=== PATIENT | female | born 1935 | race Caucasian/White ===

== ENCOUNTER 2019-10-30 08:55 | Day surgery (SDC) | payer MEDICARE ==
[2019-10-29 14:44] LABS: BASOPHILS # (AUTO) 0.1 X10'3 (0-0.2); BASOPHILS % (AUTO) 1.1 % (0-1); EOSINOPHILS # (AUTO) 0.2 X10'3 (0-0.9); HEMATOCRIT 43.4 % (35.0-45.0); HEMOGLOBIN 14.3 g/dl (12.0-16.0); LYMPHOCYTES # (AUTO) 1.9 X10'3 (1.1-4.8); LYMPHOCYTES % (AUTO) 20.6 % (21-51); MEAN CORPUSCULAR HEMOGLOBIN 30.2 PG (27.0-31.0); MEAN CORPUSCULAR HGB CONC 32.9 g/dL (33.0-36.5); MEAN CORPUSCULAR VOLUME 92.1 FL (78-98); MEAN PLATELET VOLUME 8.8 FL (7.4-10.4); MONOCYTES # (AUTO) 0.8 X10'3 (0-0.9); MONOCYTES % (AUTO) 8.6 % (2-12); NEUTROPHILS # (AUTO) 6.2 X10'3 (1.8-7.7); NEUTROPHILS % (AUTO) 67.7 % (42-75); PLATELET COUNT 295 X10'3 (140-440); RED BLOOD COUNT 4.71 X10'6 (4.20-5.60); RED CELL DISTRIBUTION WIDTH 14.4 % (11.5-14.5); WHITE BLOOD COUNT 9.2 X10'3 (4.5-11.0)
[2019-10-29 14:46] LABS: ALBUMIN 3.3 G/DL (3.4-5.0); ANION GAP 7 (8-16); BLOOD UREA NITROGEN 10 MG/DL (7-18); BUN/CREATININE RATIO 8.6 (6.6-38.0); CALCIUM 9.6 MG/DL (8.5-10.1); CHLORIDE 106 MMOL/L (99-107); CREATININE 1.16 MG/DL (0.40-0.90); GLUCOSE 86 MG/DL (70-104); POTASSIUM 3.8 MMOL/L (3.5-5.1); SODIUM 142 MMOL/L (135-145); TOTAL CARBON DIOXIDE 29.3 MMOL/L (24-32); eGFR 45 ML/MIN
[2019-10-29 14:50] LABS: PARTIAL THROMBOPLASTIN TIME 27 SECONDS (22-32)
[~2019-10-30] VITALS: Ht 154.9 cm; Wt 75.8 kg
[2019-10-30] VITALS (15 sets, daily range): BP systolic 120–216; BP diastolic 54–76
[~2019-10-30 08:55] MED LIST: ASPI-1265 PO; CIPR-230 PO; CYAN100070 PO; DOCU-28 PO; FERR-119 PO; FURO-150 PO; LOSA100T57 PO; METO-411 PO; POTA10TA36 PO
[2019-10-30] MEDS ORDERED: DOCU240C26 PO (09:23)
[2019-10-30] MEDS ORDERED: FERR-119 PO (09:23)
[2019-10-30] MEDS ORDERED: MULT-190 (09:23)
[2019-10-30] MEDS ORDERED: LIDOcaine/PRILOcaine 5gm cream TP ONE (09:25)
[2019-10-30] MEDS ORDERED: normal saline 1,000 ML IV SCH (09:25)
[2019-10-30] MEDS ORDERED: LORazepam 0.5 MG tablet PO PRN (09:25)
[2019-10-30] MEDS ORDERED: diphenhydrAMINE 25mg capsule PO PRN (09:25)
[2019-10-30] MEDS ORDERED: nitroGLYCERIN-Tridil 50MG/D5W 250 ML IV ONE (11:25)
[2019-10-30] MEDS ORDERED: verapamil 2.5 mg/ml inj IV ONE (11:25)
[2019-10-30] MEDS ORDERED: LIDOcaine 1% (10mg/ml)w/preservative injection 20ml MDV ONE ×2 (11:26→12:32)
[2019-10-30] MEDS ORDERED: fentaNYL/PF 50MCG/1 ML 2ML syringe ONE (11:26)
[2019-10-30] MEDS ORDERED: iohexol 350 MG/ML 50ML vial IV ONE (11:26)
[2019-10-30] MEDS ORDERED: iohexol 350MG/ML 100ml bottle IV ONE (11:26)
[2019-10-30] MEDS ORDERED: heparin 1,000unit/ml 10ml vial 10 ML ONE (11:26)
[2019-10-30] MEDS ORDERED: midazolam 2 mg/2 ml injection ONE (11:26)
[2019-10-30] MEDS ORDERED: hydrALAZINE 20mg/ml inj. IV ONE (12:47)
[2019-10-30] MEDS ORDERED: hydrALAZINE 20mg/ml inj. IV PRN (13:55)
[2019-10-30 15:11] LABS: ISTAT HGB ART 12.2 g/dl (12.0-16.0); ISTAT Hct ART 36 %PCV (35-48); ISTAT O2 SATURATION ARTERIAL 97 % (95-98); ISTAT SOURCE ART
[2019-10-30 15:11] LABS: ISTAT Hct MIX 38 %PCV (35-48); ISTAT O2 SATURATION MIX VENOUS 75 % (60-80); ISTAT SOURCE MIX
[2019-10-30] MEDS ORDERED: HYDROcodone/acetaminophen 5mg/325mg tablet PO PRN (16:30)
[2019-10-30] MEDS ORDERED: HYDROcodone/acetaminophen 10/325mg tab PO PRN (16:30)
== END 2019-10-30 20:00 | disposition home or self-care (01) ==
LOC: U 08:55 → MED 3N 08:56 → U 20:00
PROVIDERS: ATTEND Internal Medicine Cardiovascular Disease
DX: R94.39 Abnormal result of other cardiovascular function study (principal); R06.02 Shortness of breath; I25.10 Atherosclerotic heart disease of native coronary artery without angina pectoris; E11.9 Type 2 diabetes mellitus without complications; I10 Essential (primary) hypertension; E78.5 Hyperlipidemia, unspecified; J44.9 Chronic obstructive pulmonary disease, unspecified; I35.0 Nonrheumatic aortic (valve) stenosis; I27.29 Other secondary pulmonary hypertension; M19.90 Unspecified osteoarthritis, unspecified site; Z95.5 Presence of coronary angioplasty implant and graft; Z79.899 Other long term (current) drug therapy; Z79.82 Long term (current) use of aspirin; Z98.890 Other specified postprocedural states; Z87.891 Personal history of nicotine dependence; Z88.0 Allergy status to penicillin
CPT/HCPCS: 36415; 80048; 82803; 85014; 85025; 85610; 85730; 93005; 93460; 99152; 99153; C1769; C1894; J0360; J1644; J2001; J2250; J3010; J7030; Q0163; Q9967; A4620; A5120; A6258; J3490

== ENCOUNTER 2021-01-07 05:02 | Inpatient (IN) | payer MEDICARE ==
[2021-01-07] VITALS (11 sets, daily range): BP systolic 112–155; BP diastolic 46–61
[~2021-01-07] VITALS: Ht 152.4 cm; Wt 93.8 kg
[~2021-01-07 05:02] MED LIST changes: +ATOR10TA70 PO; -CIPR-230 PO; +CYAN-51 PO; -CYAN100070 PO; -DOCU-28 PO; -FURO-150 PO; +MULT-190 PO; -POTA10TA36 PO
--- NOTE | 2021-01-07 05:08 | NUR ---
etomidate 40mg rocuronium 100mg
[2021-01-07] MEDS ORDERED: etomidate 2mg/ml inj. IV STA (05:15)
[2021-01-07] MEDS ORDERED: rocuronium 10mg/ml inj IV STA (05:15)
[2021-01-07] MEDS ORDERED: enalaprilat dihydrate 2.5mg/2ml vial IV STA (05:15)
[2021-01-07] MEDS ORDERED: furosemide 10 MG/1 ML 10ml inj IV STA (05:18)
--- NOTE | 2021-01-07 05:31 | NUR ---
LM for family member Andrew to call here.
[2021-01-07] MEDS: midazolam 100mg in NS 100ml 100 ML IV PRN (05:40)
[2021-01-07] MEDS: FENTANYL-0.9 % NACL/PF 100 ML IV PRN ×2 (05:41→22:07)
--- NOTE | 2021-01-07 06:05 | NUR ---
Received phone call back from Andrew. Informed him of condition of Celeste.
[2021-01-07 06:07] LABS: ABG BASE EXCESS -1.8 mmol/L (-2.0-2.0); ABG HCO3 24.4 mmol/L (22.0-26.0); ABG OXYGEN SATURATION 91.2 % (94-97); ABG PCO2 (T) 46.3 mmHg (32.0-45.0); ABG PO2 (T) 61.4 mmHg (75.0-100.0); FCOHb 0.5 % (0.0-3.9); FMetHb 0.4 % (0.0-1.5); FO2Hb 90.4 % (94-97); PATIENT TEMPERATURE 36.6; PEEP 5 cm H2O; RESPIRATORY RATE 18 b/min; TOTAL HEMOGLOBIN 14.2 G/dl (12.0-16.0)
[2021-01-07 06:17] LABS: BASOPHILS # (AUTO) 0.1 X10'3 (0-0.2); BASOPHILS % (AUTO) 0.4 % (0-1); EOSINOPHILS # (AUTO) 0.2 X10'3 (0-0.9); EOSINOPHILS % (AUTO) 0.7 % (0-6); HEMATOCRIT 42.5 % (35.0-45.0); LYMPHOCYTES # (AUTO) 1.7 X10'3 (1.1-4.8); LYMPHOCYTES % (AUTO) 8.1 % (21-51); MEAN CORPUSCULAR HEMOGLOBIN 29.7 PG (27.0-31.0); MEAN CORPUSCULAR VOLUME 90.2 FL (78-98); MEAN PLATELET VOLUME 9.2 FL (7.4-10.4); MONOCYTES # (AUTO) 0.8 X10'3 (0-0.9); MONOCYTES % (AUTO) 3.5 % (2-12); NEUTROPHILS # (AUTO) 18.7 X10'3 (1.8-7.7); NEUTROPHILS % (AUTO) 87.3 % (42-75); PLATELET COUNT 309 X10'3 (140-440); RED BLOOD COUNT 4.71 X10'6 (4.20-5.60); RED CELL DISTRIBUTION WIDTH 14.1 % (11.5-14.5); WHITE BLOOD COUNT 21.4 X10'3 (4.5-11.0)
[2021-01-07] MEDS ORDERED: DOPamine 400mg/D5W 250ml 250 ML IV ONE (06:20)
--- NOTE | 2021-01-07 06:20 | NUR ---
notified dr deng about pressure increase, ok to hold dopamine for now.
--- NOTE | 2021-01-07 06:21 | NUR ---
placed pt on pacer pads per dr deng
[2021-01-07 06:24] LABS: ALANINE AMINOTRANSFERASE 13 U/L (12-78); ALBUMIN 2.9 G/DL (3.4-5.0); ALBUMIN/GLOBULIN RATIO 0.7 (1.1-1.5); ALKALINE PHOSPHATASE 90 IU/L (46-116); ANION GAP 13 (8-16); ASPARTATE AMINO TRANSFERASE 16 U/L (10-37); BILIRUBIN,TOTAL 0.4 MG/DL (0.1-1.0); BLOOD UREA NITROGEN 19 MG/DL (7-18); BUN/CREATININE RATIO 13.7 (6.6-38.0); CALCIUM 8.4 MG/DL (8.5-10.1); CHLORIDE 103 MMOL/L (99-107); CREATININE 1.39 MG/DL (0.40-0.90); GLUCOSE 208 MG/DL (70-104); SODIUM 143 MMOL/L (135-145); TOTAL CARBON DIOXIDE 27.3 MMOL/L (24-32); TOTAL PROTEIN 6.9 G/DL (6.4-8.2); eGFR 36 ML/MIN
--- NOTE | 2021-01-07 06:31 | NUR ---
norepi running at 0/5 placed on hold d/t blood pressure
[2021-01-07 06:35] LABS: POTASSIUM 3.8 MMOL/L (3.5-5.1)
[2021-01-07] MEDS ORDERED: nitroPRUSSIDE 0.2mg/mL in NS 100 ML IV ONE (06:35)
--- NOTE | 2021-01-07 06:35 | NUR ---
dr deng ordered to start a nitro gtt for pt, orders placed.
[2021-01-07] MEDS ORDERED: potassium Cl 40MEQ/1/2NS 520ml 520 ML IV PRN (06:40)
[2021-01-07] MEDS ORDERED: magnesium 2GM in 50ml NS 50 ML IV PRN (06:40)
[2021-01-07] MEDS ORDERED: acetaminophen 325mg tablet PO PRN (06:40)
[2021-01-07] MEDS ORDERED: LIDOcaine 2% 10ml TOPICAL JELLY (Urojet) TP ONE (06:40)
[2021-01-07] MEDS ORDERED: nitroPRUSSIDE 0.2mg/mL in NS 100 ML IV SCH (07:00)
--- NOTE | 2021-01-07 07:00 | NUR ---
dopamine on hold, norepi on hold, awaiting nitro from pharmacy. closely monitoring pt.
[2021-01-07] MEDS ORDERED: nitroPRUSSIDE sod inj. 50 MG in dextrose 5%-water 248 ML IV SCH (07:10)
[2021-01-07] MEDS ORDERED: docusate sod 100mg capsule PO SCH (08:00)
[2021-01-07] MEDS ORDERED: rocuronium 10mg/ml inj IV ONE (08:00)
[2021-01-07] MEDS: famotidine 20mg tablet PO SCH ×2 (08:00→20:00)
[2021-01-07] MEDS ORDERED: epiNEPHrine 0.1mg/ml 10ml syringe ONE (08:00)
[2021-01-07] MEDS ORDERED: piperacillin/tazo 3.375gm/50ml 50 ML IV ONE (08:30)
[2021-01-07] MEDS ORDERED: VANCOmycin 1250MG/NS 250ml Bag 250 ML IV ONE (09:00)
[2021-01-07] MEDS ORDERED: vancomycin inj 500 MG in normal saline 100ml IV soln 100 ML IV SCH (09:00)
[2021-01-07 09:39] LABS: PARTIAL THROMBOPLASTIN TIME 24 SECONDS (22-32)
[2021-01-07] MEDS: heparin, porcine 5000 units/ml vial SQ SCH ×2 (10:04→16:56)
[2021-01-07 10:33] LABS: CLARITY,URINE CLEAR (Clear); COLOR,URINE STRAW (Yellow); GLUCOSE, URINE NEGATIVE (Neg); KETONES,URINE NEGATIVE (Neg); LEUKOCYTE ESTERASE ,URINE NEGATIVE (Neg); NITRITES, URINE NEGATIVE (Neg); OCCULT BLOOD,URINE LARGE (Neg); PROTEIN,URINE 30 mg/dl (Neg); UROBILINOGEN,URINE 0.2 E.U/dL (0.2-1.0)
[2021-01-07 10:36] LABS: UA COLLECTION TYPE STRAIGHT CATH
[2021-01-07 10:38] LABS: HYALINE CASTS 0-3 /LPF (NEGATIVE); SQUAMOUS EPITHELIAL CELL,UR FEW /LPF (FEW)
[2021-01-07 10:39] LABS: BACTERIA,URINE FEW /HPF (Neg); WBC,URINE 0-4 /HPF (0-4)
[2021-01-07] MEDS: K, MAG and/or Phos replacement - Verify level? MC SCH (13:30)
[2021-01-07] MEDS: normal saline 1000ml 1,000 ML IV SCH ×2 (14:30→23:25)
[2021-01-07 15:33] LABS: ABG HCO3 23.4 mmol/L (22.0-26.0); ABG OXYGEN SATURATION 99.3 % (94-97); ABG PCO2 (T) 31.6 mmHg (32.0-45.0); ABG PO2 (T) 251.5 mmHg (75.0-100.0); ALLEN'S TEST POSITIVE; FMetHb 0.3 % (0.0-1.5); PATIENT TEMPERATURE 37.6; PEEP 10 cm H2O; RESPIRATORY RATE 20 b/min; TOTAL HEMOGLOBIN 14.1 G/dl (12.0-16.0)
[2021-01-07] MEDS: piperacillin/tazo 3.375gm/50ml 50 ML IV SCH (17:03)
--- NOTE | 2021-01-07 18:43 | NUR ---
Problems reprioritized. Patient report given, questions answered & plan of care reviewed with Carroll HERNANDES.
[2021-01-07] MEDS ORDERED: vancomycin/NS 1 GM ADD-VANTAGE 250 ML IV SCH (20:00)
[2021-01-07] MEDS ORDERED: lactobacillus rhamnosus 10,000 MMU CELLS/CAPSULE PO SCH (20:00)
[2021-01-07] MEDS: docusate sodium 100mg/10ml UD cup PO SCH (21:30)
[2021-01-08] VITALS (24 sets, daily range): BP systolic 99–153; BP diastolic 41–84
[2021-01-08] MEDS: heparin, porcine 5000 units/ml vial SQ SCH ×3 (01:06→16:31)
[2021-01-08] MEDS: piperacillin/tazo 3.375gm/50ml 50 ML IV SCH ×3 (01:33→21:09)
[2021-01-08] MEDS ORDERED: ringers solution, lacted 1,000 ML IV ONE (02:25)
[2021-01-08 04:00] LABS: BASOPHILS # (AUTO) 0.1 X10'3 (0-0.2); BASOPHILS % (AUTO) 0.6 % (0-1); EOSINOPHILS # (AUTO) 0.1 X10'3 (0-0.9); HEMATOCRIT 35.1 % (35.0-45.0); HEMOGLOBIN 11.9 g/dl (12.0-16.0); LYMPHOCYTES # (AUTO) 1.4 X10'3 (1.1-4.8); LYMPHOCYTES % (AUTO) 12.6 % (21-51); MEAN CORPUSCULAR HEMOGLOBIN 29.5 PG (27.0-31.0); MEAN CORPUSCULAR VOLUME 86.7 FL (78-98); MEAN PLATELET VOLUME 9.2 FL (7.4-10.4); MONOCYTES % (AUTO) 9.3 % (2-12); NEUTROPHILS # (AUTO) 8.5 X10'3 (1.8-7.7); NEUTROPHILS % (AUTO) 76.5 % (42-75); PLATELET COUNT 247 X10'3 (140-440); RED BLOOD COUNT 4.05 X10'6 (4.20-5.60); RED CELL DISTRIBUTION WIDTH 13.5 % (11.5-14.5); WHITE BLOOD COUNT 11.1 X10'3 (4.5-11.0)
[2021-01-08 04:13] LABS: ABG HCO3 22.7 mmol/L (22.0-26.0); ABG OXYGEN SATURATION 94.8 % (94-97); ABG PCO2 (T) 35.8 mmHg (32.0-45.0); ABG PO2 (T) 78.5 mmHg (75.0-100.0); ALLEN'S TEST Yes; FCOHb 0.2 % (0.0-3.9); FMetHb 0.3 % (0.0-1.5); FO2Hb 94.3 % (94-97); PATIENT TEMPERATURE 37.6; PEEP 8 cm H2O; RESPIRATORY RATE 18 b/min; TOTAL HEMOGLOBIN 12.4 G/dl (12.0-16.0)
[2021-01-08 04:19] LABS: ALBUMIN 2.4 G/DL (3.4-5.0); ANION GAP 13 (8-16); BLOOD UREA NITROGEN 29 MG/DL (7-18); BUN/CREATININE RATIO 15.2 (6.6-38.0); CALCIUM 7.8 MG/DL (8.5-10.1); CHLORIDE 107 MMOL/L (99-107); CREATININE 1.91 MG/DL (0.40-0.90); GLUCOSE 88 MG/DL (70-104); MAGNESIUM 1.8 MG/DL (1.5-2.4); PHOSPHORUS 3.1 MG/DL (2.3-4.5); POTASSIUM 3.7 MMOL/L (3.5-5.1); SODIUM 145 MMOL/L (135-145); TOTAL CARBON DIOXIDE 25.3 MMOL/L (24-32); eGFR 25 ML/MIN
[2021-01-08] MEDS: midazolam 100mg in NS 100ml 100 ML IV PRN ×2 (04:43→22:43)
[2021-01-08] MEDS ORDERED: dextrose 50%-water 50ml dispensing syringe IV ONE (07:19)
[2021-01-08] MEDS ORDERED: dextrose 50%-water 50ml dispensing syringe IV PRN (07:20)
[2021-01-08] MEDS: dextrose 50%-water 50ml dispensing syringe IV PRN ×2 (07:22→12:25)
[2021-01-08] MEDS: K, MAG and/or Phos replacement - Verify level? MC SCH (07:38)
[2021-01-08] MEDS ORDERED: ferrous sulfate 325mg tablet PO SCH (08:00)
[2021-01-08] MEDS ORDERED: losartan 50mg tablet PO SCH (08:00)
[2021-01-08] MEDS ORDERED: cyanocobalamin 500mcg tablet PO SCH (08:00)
[2021-01-08] MEDS ORDERED: metoprolol succinate 25mg (24-HOUR) SR. Tablet PO SCH (08:00)
[2021-01-08] MEDS ORDERED: azithromycin 250mg tablet PO SCH (08:00)
[2021-01-08] MEDS ORDERED: multivitamins, therapeutics tablet PO SCH (08:00)
[2021-01-08] MEDS ORDERED: aspirin 81mg tab.chew PO SCH (08:00)
[2021-01-08] MEDS ORDERED: atorvastatin 10mg tablet PO SCH (08:00)
[2021-01-08] MEDS: vancomycin inj 500 MG in normal saline 100ml IV soln 100 ML IV SCH (08:23)
[2021-01-08] MEDS ORDERED: PERFLUTREN PROTEIN-A MICROSPHR (Optison) 0.22 MG/ML 3ML VIAL IV ONE (08:25)
[2021-01-08] MEDS: docusate sodium 100mg/10ml UD cup PO SCH (08:26)
[2021-01-08] MEDS: famotidine 20mg tablet PO SCH (08:29)
[2021-01-08 09:07] LABS: OXYGEN SATURATION (MIXED VEN) 71.5 % (60-80); PO2 MIXED VENOUS (TEMP COR) 41.2 mmHg (35-46)
[2021-01-08] MEDS: normal saline 1000ml 1,000 ML IV SCH ×2 (09:25→17:59)
--- NOTE | 2021-01-08 11:08 | NUR ---
TF consult: Pt admit for TONY, PNA, and acute respiratory failure requiring intubation. Pt with an OG tube in place, TF recommendations below. Will hold off on water flushes at this time in view of renal status. No documented LBM, pt receiving routine bowel care. Will continue to follow closely. Recommendations: 1) Continuous Vital High Protein with 50 mL/hr goal rate to provide: 1200 mL total volume/day, 1200 kcal, 105 g protein, and 1003 mL water 2) Monitor renal status and implement water flushes as appropriate 3) Prealbumin q Monday/ 4) Daily weights 5) Routine bowel care 6) Advance to regular diet as medically indicated following extubation Addendum: 01/08/21 at [address] Amended: Links added.
[2021-01-08] MEDS ORDERED: acetaminophen 325mg tablet OGT PRN (12:18)
[2021-01-08] MEDS ORDERED: acetaminophen 325mg/10.15ml oral unit dose solution OGT PRN (12:20)
[2021-01-08] MEDS: nystatin 15 GM powder TP SCH ×2 (13:53→21:01)
[2021-01-08 17:45] LABS: ALBUMIN 2.1 G/DL (3.4-5.0); ANION GAP 10 (8-16); BLOOD UREA NITROGEN 29 MG/DL (7-18); BUN/CREATININE RATIO 13.6 (6.6-38.0); CALCIUM 7.3 MG/DL (8.5-10.1); CHLORIDE 108 MMOL/L (99-107); CREATININE 2.14 MG/DL (0.40-0.90); GLUCOSE 111 MG/DL (70-104); POTASSIUM 3.4 MMOL/L (3.5-5.1); SODIUM 141 MMOL/L (135-145); TOTAL CARBON DIOXIDE 23.5 MMOL/L (24-32); eGFR 22 ML/MIN
[2021-01-08] MEDS ORDERED: normal saline 1000ml 1,000 ML IV ONE (17:55)
--- NOTE | 2021-01-08 18:31 | NUR ---
Problems reprioritized. Patient report given, questions answered & plan of care reviewed with Aislinn HERNANDES.
[2021-01-08] MEDS: FENTANYL-0.9 % NACL/PF 100 ML IV PRN (18:54)
[2021-01-08] MEDS: metoprolol tartrate 50mg tablet OGT SCH (20:00)
[2021-01-08] MEDS ORDERED: potassium Cl 40MEQ/250ML bag 270 ML IV PRN (20:10)
[2021-01-08] MEDS: lactobacillus rhamnosus 10,000 MMU CELLS/CAPSULE OGT SCH (20:59)
[2021-01-08] MEDS: docusate sodium 100mg/10ml UD cup OGT SCH (21:01)
[2021-01-08] MEDS: famotidine 20mg tablet OGT SCH (21:07)
[2021-01-09] VITALS (24 sets, daily range): BP systolic 104–172; BP diastolic 41–64
[2021-01-09] MEDS: heparin, porcine 5000 units/ml vial SQ SCH ×4 (02:58→19:02)
[2021-01-09 03:10] LABS: BASOPHILS # (AUTO) 0.1 X10'3 (0-0.2); BASOPHILS % (AUTO) 0.9 % (0-1); EOSINOPHILS # (AUTO) 0.2 X10'3 (0-0.9); EOSINOPHILS % (AUTO) 2.9 % (0-6); HEMOGLOBIN 10.3 g/dl (12.0-16.0); LYMPHOCYTES # (AUTO) 1.3 X10'3 (1.1-4.8); MEAN CORPUSCULAR HEMOGLOBIN 29.8 PG (27.0-31.0); MEAN CORPUSCULAR HGB CONC 33.2 g/dL (33.0-36.5); MEAN CORPUSCULAR VOLUME 89.9 FL (78-98); MEAN PLATELET VOLUME 9.2 FL (7.4-10.4); MONOCYTES # (AUTO) 0.8 X10'3 (0-0.9); MONOCYTES % (AUTO) 10.2 % (2-12); NEUTROPHILS # (AUTO) 5.8 X10'3 (1.8-7.7); PLATELET COUNT 201 X10'3 (140-440); RED BLOOD COUNT 3.45 X10'6 (4.20-5.60); RED CELL DISTRIBUTION WIDTH 13.9 % (11.5-14.5); WHITE BLOOD COUNT 8.2 X10'3 (4.5-11.0)
[2021-01-09 03:24] LABS: ABG BASE EXCESS -3.3 mmol/L (-2.0-2.0); ABG HCO3 20.2 mmol/L (22.0-26.0); ABG OXYGEN SATURATION 95.4 % (94-97); ABG PCO2 (T) 30.7 mmHg (32.0-45.0); ABG PO2 (T) 77.4 mmHg (75.0-100.0); ALLEN'S TEST POSITIVE; FCOHb 0.2 % (0.0-3.9); FMetHb 0.3 % (0.0-1.5); FO2Hb 94.9 % (94-97); PATIENT TEMPERATURE 36.8; PEEP 8 cm H2O; RESPIRATORY RATE 18 b/min; TOTAL HEMOGLOBIN 11.4 G/dl (12.0-16.0)
[2021-01-09 03:41] LABS: ALBUMIN 1.9 G/DL (3.4-5.0); ANION GAP 11 (8-16); BLOOD UREA NITROGEN 27 MG/DL (7-18); BUN/CREATININE RATIO 14.8 (6.6-38.0); CALCIUM 7.2 MG/DL (8.5-10.1); CHLORIDE 111 MMOL/L (99-107); CREATININE 1.83 MG/DL (0.40-0.90); GLUCOSE 103 MG/DL (70-104); MAGNESIUM 1.5 MG/DL (1.5-2.4); PHOSPHORUS 2.6 MG/DL (2.3-4.5); POTASSIUM 3.6 MMOL/L (3.5-5.1); SODIUM 143 MMOL/L (135-145); TOTAL CARBON DIOXIDE 21.5 MMOL/L (24-32); eGFR 26 ML/MIN
[2021-01-09] MEDS: normal saline 1000ml 1,000 ML IV SCH ×2 (06:24→15:25)
[2021-01-09] MEDS: metoprolol tartrate 50mg tablet OGT SCH ×2 (08:00→19:58)
[2021-01-09] MEDS: losartan 50mg tablet OGT SCH (08:00)
[2021-01-09] MEDS: K, MAG and/or Phos replacement - Verify level? MC SCH (08:00)
[2021-01-09] MEDS: vancomycin inj 500 MG in normal saline 100ml IV soln 100 ML IV SCH (09:22)
[2021-01-09] MEDS: piperacillin/tazo 3.375gm/50ml 50 ML IV SCH ×2 (09:22→19:58)
[2021-01-09] MEDS: ferrous sulfate 300mg/5ml UD oral liquid OGT SCH (09:24)
[2021-01-09] MEDS: docusate sodium 100mg/10ml UD cup OGT SCH ×2 (09:24→19:58)
[2021-01-09] MEDS: aspirin 81mg tab.chew OGT SCH (09:25)
[2021-01-09] MEDS: atorvastatin 10mg tablet OGT SCH (09:25)
[2021-01-09] MEDS: lactobacillus rhamnosus 10,000 MMU CELLS/CAPSULE OGT SCH ×2 (09:25→19:58)
[2021-01-09] MEDS: famotidine 20mg tablet OGT SCH ×2 (09:25→19:58)
[2021-01-09] MEDS: cyanocobalamin 500mcg tablet OGT SCH (09:25)
[2021-01-09] MEDS: nystatin 15 GM powder TP SCH ×3 (09:26→19:59)
[2021-01-09] MEDS: azithromycin 200mg/5ml oral suspension 15ml bottle OGT SCH (11:33)
[2021-01-09] MEDS: MULTIVIT-MIN/FERROUS GLUCONATE 9 MG/15 ML LIQUID OGT SCH (11:33)
--- NOTE | 2021-01-09 17:30 | NUR ---
Patient on sedation vacation since 629. Grimaces and fights against oral care. Moving all extremities. Does not follow commands. HR has increased into 70's-90's. In sinus rhythm with occ. PAC's. Spontaneous breathing trial done on Pressure support 12 & PEEP 5. Tolerated for about 2 hours before respiratory rate increased into 30's and RSBI 144. Placed back on A/C. Tolerating tube feeding well. UO 30-40 ml/hr. ETT had been suctioned for small amounts of bloody secretions. @1730, patient had a large amount of bloody secretions from ETT. Dr. Patiño notified. CXR done with no s/s hemorrhage. Orders to hold pm dose of Heparin SQ.
--- NOTE | 2021-01-09 18:29 | NUR ---
Problems reprioritized. Patient report given, questions answered & plan of care reviewed with Carroll HERNANDES.
--- NOTE | 2021-01-09 19:04 | NUR ---
Dr Patiño told [facility] nurse Roberto Carlos to hold heparin sq tonight dt/ increased blood in ETT post suctioning.
[2021-01-10] VITALS (21 sets, daily range): BP systolic 122–197; BP diastolic 38–84
[2021-01-10] MEDS: FENTANYL-0.9 % NACL/PF 100 ML IV PRN (02:37)
[2021-01-10 03:25] LABS: ABG BASE EXCESS -5.3 mmol/L (-2.0-2.0); ABG HCO3 20.9 mmol/L (22.0-26.0); ABG OXYGEN SATURATION 94.7 % (94-97); ABG PCO2 (T) 43.1 mmHg (32.0-45.0); ABG PO2 (T) 79.9 mmHg (75.0-100.0); ALLEN'S TEST POSITIVE; FCOHb 0.3 % (0.0-3.9); FMetHb 0.4 % (0.0-1.5); PATIENT TEMPERATURE 36.8; PEEP 5 cm H2O; RESPIRATORY RATE 16 b/min; TOTAL HEMOGLOBIN 11.2 G/dl (12.0-16.0)
[2021-01-10 03:48] LABS: BASOPHILS # (AUTO) 0.1 X10'3 (0-0.2); BASOPHILS % (AUTO) 0.6 % (0-1); EOSINOPHILS # (AUTO) 0.3 X10'3 (0-0.9); EOSINOPHILS % (AUTO) 3.2 % (0-6); HEMATOCRIT 30.7 % (35.0-45.0); HEMOGLOBIN 10.2 g/dl (12.0-16.0); LYMPHOCYTES # (AUTO) 1.5 X10'3 (1.1-4.8); LYMPHOCYTES % (AUTO) 17.7 % (21-51); MEAN CORPUSCULAR HEMOGLOBIN 30.1 PG (27.0-31.0); MEAN PLATELET VOLUME 9.5 FL (7.4-10.4); MONOCYTES % (AUTO) 11.4 % (2-12); NEUTROPHILS # (AUTO) 5.6 X10'3 (1.8-7.7); NEUTROPHILS % (AUTO) 67.1 % (42-75); PLATELET COUNT 218 X10'3 (140-440); RED BLOOD COUNT 3.38 X10'6 (4.20-5.60); RED CELL DISTRIBUTION WIDTH 14.1 % (11.5-14.5); WHITE BLOOD COUNT 8.4 X10'3 (4.5-11.0)
[2021-01-10 03:57] LABS: ALBUMIN 1.9 G/DL (3.4-5.0); ANION GAP 7 (8-16); BLOOD UREA NITROGEN 30 MG/DL (7-18); BUN/CREATININE RATIO 17.5 (6.6-38.0); CALCIUM 7.6 MG/DL (8.5-10.1); CHLORIDE 112 MMOL/L (99-107); CREATININE 1.71 MG/DL (0.40-0.90); GLUCOSE 86 MG/DL (70-104); MAGNESIUM 1.6 MG/DL (1.5-2.4); PHOSPHORUS 3.8 MG/DL (2.3-4.5); POTASSIUM 4.1 MMOL/L (3.5-5.1); SODIUM 143 MMOL/L (135-145); TOTAL CARBON DIOXIDE 23.8 MMOL/L (24-32); eGFR 28 ML/MIN
[2021-01-10] MEDS: heparin, porcine 5000 units/ml vial SQ SCH ×2 (08:00→16:00)
[2021-01-10] MEDS ORDERED: VANCOMYCIN LEVEL IV ONE (08:30)
[2021-01-10] MEDS: piperacillin/tazo 3.375gm/50ml 50 ML IV SCH ×2 (08:30→20:19)
[2021-01-10] MEDS: docusate sodium 100mg/10ml UD cup OGT SCH ×2 (08:37→20:20)
[2021-01-10] MEDS: vancomycin inj 500 MG in normal saline 100ml IV soln 100 ML IV SCH (08:37)
[2021-01-10] MEDS: atorvastatin 10mg tablet OGT SCH (08:38)
[2021-01-10] MEDS: famotidine 20mg tablet OGT SCH ×2 (08:38→20:20)
[2021-01-10] MEDS: MULTIVIT-MIN/FERROUS GLUCONATE 9 MG/15 ML LIQUID OGT SCH (08:38)
[2021-01-10] MEDS: metoprolol tartrate 50mg tablet OGT SCH ×2 (08:38→20:00)
[2021-01-10] MEDS: cyanocobalamin 500mcg tablet OGT SCH (08:38)
[2021-01-10] MEDS: lactobacillus rhamnosus 10,000 MMU CELLS/CAPSULE OGT SCH ×2 (08:39→20:20)
[2021-01-10] MEDS: losartan 50mg tablet OGT SCH (08:39)
[2021-01-10] MEDS: aspirin 81mg tab.chew OGT SCH (08:39)
[2021-01-10] MEDS: nystatin 15 GM powder TP SCH ×3 (08:40→20:21)
[2021-01-10] MEDS: ferrous sulfate 300mg/5ml UD oral liquid OGT SCH (08:59)
[2021-01-10] MEDS: azithromycin 200mg/5ml oral suspension 15ml bottle OGT SCH (08:59)
[2021-01-10] MEDS: K, MAG and/or Phos replacement - Verify level? MC SCH (09:00)
[2021-01-10] MEDS: normal saline 1000ml 1,000 ML IV SCH ×3 (09:32→21:25)
[2021-01-10] MEDS ORDERED: vancomycin inj 500 MG in normal saline 100ml IV soln 100 ML IV ONE (10:30)
[2021-01-10] MEDS: dexmedetomidin/NS 400mcg/100ml 100 ML IV SCH ×2 (16:48→20:40)
[2021-01-10] MEDS ORDERED: hydrALAZINE 20mg/ml inj. IV PRN (19:35)
[2021-01-10] MEDS: hydrALAZINE 20mg/ml inj. IV PRN (19:43)
[2021-01-11] VITALS (24 sets, daily range): BP systolic 118–197; BP diastolic 38–83
[2021-01-11] MEDS: heparin, porcine 5000 units/ml vial SQ SCH ×3 (00:31→16:07)
[2021-01-11] MEDS ORDERED: fentaNYL/PF 50MCG/1 ML 2ML syringe IV PRN (02:30)
[2021-01-11 03:00] LABS: ABG HCO3 20.6 mmol/L (22.0-26.0); ABG OXYGEN SATURATION 94.2 % (94-97); ABG PCO2 (T) 38.2 mmHg (32.0-45.0); ABG PO2 (T) 68.7 mmHg (75.0-100.0); ALLEN'S TEST POSITIVE; FCOHb 0.2 % (0.0-3.9); FMetHb 0.3 % (0.0-1.5); FO2Hb 93.7 % (94-97); PATIENT TEMPERATURE 35.8; PEEP 5 cm H2O; RESPIRATORY RATE 16 b/min; TOTAL HEMOGLOBIN 12.3 G/dl (12.0-16.0)
[2021-01-11 03:29] LABS: BASOPHILS % (AUTO) 0.3 % (0-1); EOSINOPHILS # (AUTO) 0.1 X10'3 (0-0.9); EOSINOPHILS % (AUTO) 1.5 % (0-6); HEMATOCRIT 34.8 % (35.0-45.0); HEMOGLOBIN 11.2 g/dl (12.0-16.0); LYMPHOCYTES # (AUTO) 0.6 X10'3 (1.1-4.8); LYMPHOCYTES % (AUTO) 6.2 % (21-51); MEAN CORPUSCULAR HEMOGLOBIN 29.3 PG (27.0-31.0); MEAN CORPUSCULAR HGB CONC 32.3 g/dL (33.0-36.5); MEAN CORPUSCULAR VOLUME 90.7 FL (78-98); MEAN PLATELET VOLUME 9.8 FL (7.4-10.4); MONOCYTES # (AUTO) 0.6 X10'3 (0-0.9); MONOCYTES % (AUTO) 6.3 % (2-12); NEUTROPHILS # (AUTO) 8.4 X10'3 (1.8-7.7); NEUTROPHILS % (AUTO) 85.7 % (42-75); PLATELET COUNT 239 X10'3 (140-440); RED BLOOD COUNT 3.84 X10'6 (4.20-5.60); RED CELL DISTRIBUTION WIDTH 14.4 % (11.5-14.5); WHITE BLOOD COUNT 9.7 X10'3 (4.5-11.0)
[2021-01-11 04:37] LABS: ANION GAP 12 (8-16); BLOOD UREA NITROGEN 30 MG/DL (7-18); BUN/CREATININE RATIO 21.9 (6.6-38.0); CALCIUM 8.2 MG/DL (8.5-10.1); CHLORIDE 111 MMOL/L (99-107); CREATININE 1.37 MG/DL (0.40-0.90); GLUCOSE 133 MG/DL (70-104); MAGNESIUM 1.8 MG/DL (1.5-2.4); PHOSPHORUS 3.9 MG/DL (2.3-4.5); POTASSIUM 4.1 MMOL/L (3.5-5.1); PREALBUMIN 13.4 MG/DL (19-36); SODIUM 144 MMOL/L (135-145); TOTAL CARBON DIOXIDE 20.7 MMOL/L (24-32); eGFR 37 ML/MIN
[2021-01-11] MEDS: hydrALAZINE 20mg/ml inj. IV PRN (06:04)
[2021-01-11] MEDS: K, MAG and/or Phos replacement - Verify level? MC SCH (08:00)
[2021-01-11] MEDS: cyanocobalamin 500mcg tablet OGT SCH (08:20)
[2021-01-11] MEDS: losartan 50mg tablet OGT SCH (08:20)
[2021-01-11] MEDS: aspirin 81mg tab.chew OGT SCH (08:20)
[2021-01-11] MEDS: atorvastatin 10mg tablet OGT SCH (08:20)
[2021-01-11] MEDS: QUEtiapine 25mg tablet PO SCH ×2 (08:20→20:02)
[2021-01-11] MEDS: lactobacillus rhamnosus 10,000 MMU CELLS/CAPSULE OGT SCH ×2 (08:21→20:02)
[2021-01-11] MEDS: metoprolol tartrate 50mg tablet OGT SCH ×2 (08:21→20:00)
[2021-01-11] MEDS: famotidine 20mg tablet OGT SCH ×2 (08:21→20:02)
[2021-01-11] MEDS: docusate sodium 100mg/10ml UD cup OGT SCH ×2 (08:21→20:03)
[2021-01-11] MEDS: ferrous sulfate 300mg/5ml UD oral liquid OGT SCH (08:21)
[2021-01-11] MEDS: MULTIVIT-MIN/FERROUS GLUCONATE 9 MG/15 ML LIQUID OGT SCH (08:21)
[2021-01-11] MEDS: azithromycin 200mg/5ml oral suspension 15ml bottle OGT SCH (08:22)
[2021-01-11] MEDS: piperacillin/tazo 3.375gm/50ml 50 ML IV SCH ×2 (08:22→16:08)
[2021-01-11] MEDS: nystatin 15 GM powder TP SCH ×3 (08:23→20:05)
[2021-01-11] MEDS ORDERED: vancomycin inj 750 MG in normal saline 250ml IV soln 250 ML IV SCH (09:00)
--- NOTE | 2021-01-11 12:25 | NUR ---
Reassessment: Pt tolerating TF at goal GRV WNL. LBM 01/09 receiving routine colace. Noted serum Na 144 w/ no free water however previously receiving NS until today; free water recs below if to start. Noted new wt 85.8kg +11.8kg wt gain one day likely error; most accurate wt 74kg making true BMI 32. Will continue to monitor for TF tolerance and adjustment needs on vent. Recommendations: 1) Continuous Vital High Protein with 50 mL/hr goal rate to provide: 1200 mL total volume/day, 1200 kcal, 105 g protein, and 1003 mL water 2) IF water flush 200ml Q4H; monitor for need given TONY per MD w/ +3 edema 3) Prealbumin q Monday/; Daily weights 4) Routine bowel care 5) Advance to regular diet as medically indicated following extubation following INDUSTRIAL THERAPIST BSS Addendum: 01/11/21 at [address] Amended: Links added.
--- NOTE | 2021-01-11 16:00 | NUR ---
PATIENT IS AWAKE AND FOLLOWING COMMANDS BUT VERY SENSITIVE TO ANY STIMULUS, WILL GET RESTLESS AND BLOOD PRESSURE GOES UP. PATIENT WAS NOT ON ANY SEDATION THE WHOLE DAY SINCE 0200 AND WAS ON CPAP. GRANDSON AT BEDSIDE AND TALKING TO PATIENT, PATIENT BECOMING INCREASINGLY AGITATED AND RESTLESS, DR DAMON NOTIFIED. PRECEDEX REORDERED AND RESTARTED AND PATIENT PUT BACK ON AC MODE.
[2021-01-11] MEDS: dexmedetomidin/NS 400mcg/100ml 100 ML IV SCH ×2 (16:05→23:37)
--- NOTE | 2021-01-11 18:30 | NUR ---
Patient in room CICU 2014. I have received report from GRETA Mckeon and had the opportunity to ask questions and assume patient care.
[2021-01-12] VITALS (24 sets, daily range): BP systolic 134–180; BP diastolic 44–61
[2021-01-12] MEDS: piperacillin/tazo 3.375gm/50ml 50 ML IV SCH ×4 (00:40→23:34)
[2021-01-12] MEDS: heparin, porcine 5000 units/ml vial SQ SCH ×4 (00:41→23:34)
[2021-01-12 02:39] LABS: BASOPHILS % (AUTO) 0.2 % (0-1); EOSINOPHILS # (AUTO) 0.1 X10'3 (0-0.9); EOSINOPHILS % (AUTO) 1.4 % (0-6); HEMOGLOBIN 10.5 g/dl (12.0-16.0); LYMPHOCYTES # (AUTO) 0.8 X10'3 (1.1-4.8); MEAN CORPUSCULAR HEMOGLOBIN 29.4 PG (27.0-31.0); MEAN CORPUSCULAR HGB CONC 32.9 g/dL (33.0-36.5); MEAN CORPUSCULAR VOLUME 89.3 FL (78-98); MEAN PLATELET VOLUME 9.5 FL (7.4-10.4); MONOCYTES # (AUTO) 0.7 X10'3 (0-0.9); MONOCYTES % (AUTO) 7.5 % (2-12); NEUTROPHILS # (AUTO) 8.3 X10'3 (1.8-7.7); NEUTROPHILS % (AUTO) 82.9 % (42-75); PLATELET COUNT 240 X10'3 (140-440); RED BLOOD COUNT 3.58 X10'6 (4.20-5.60); RED CELL DISTRIBUTION WIDTH 14.2 % (11.5-14.5)
[2021-01-12 03:02] LABS: ALBUMIN 1.9 G/DL (3.4-5.0); BLOOD UREA NITROGEN 38 MG/DL (7-18); BUN/CREATININE RATIO 28.6 (6.6-38.0); CALCIUM 8.1 MG/DL (8.5-10.1); CREATININE 1.33 MG/DL (0.40-0.90); GLUCOSE 163 MG/DL (70-104); MAGNESIUM 1.8 MG/DL (1.5-2.4); PHOSPHORUS 3.8 MG/DL (2.3-4.5); TOTAL CARBON DIOXIDE 23.4 MMOL/L (24-32); eGFR 38 ML/MIN
[2021-01-12 03:13] LABS: ANION GAP 10 (8-16); CHLORIDE 112 MMOL/L (99-107); POTASSIUM 3.9 MMOL/L (3.5-5.1); SODIUM 145 MMOL/L (135-145)
[2021-01-12 03:14] LABS: ABG BASE EXCESS -3.9 mmol/L (-2.0-2.0); ABG HCO3 20.4 mmol/L (22.0-26.0); ABG OXYGEN SATURATION 96.3 % (94-97); ALLEN'S TEST POSITIVE; FCOHb 0.3 % (0.0-3.9); FMetHb 0.2 % (0.0-1.5); FO2Hb 95.8 % (94-97); PATIENT TEMPERATURE 36.6; PEEP 5 cm H2O; RESPIRATORY RATE 16 b/min; TOTAL HEMOGLOBIN 11.4 G/dl (12.0-16.0)
[2021-01-12] MEDS: dexmedetomidin/NS 400mcg/100ml 100 ML IV SCH (05:32)
--- NOTE | 2021-01-12 06:21 | NUR ---
Problems reprioritized. Patient report given, questions answered & plan of care reviewed with GRETA Mckeon.
[2021-01-12] MEDS: K, MAG and/or Phos replacement - Verify level? MC SCH (08:00)
[2021-01-12] MEDS: famotidine 20mg tablet OGT SCH ×2 (08:27→19:53)
[2021-01-12] MEDS: lactobacillus rhamnosus 10,000 MMU CELLS/CAPSULE OGT SCH ×2 (08:28→19:53)
[2021-01-12] MEDS: docusate sodium 100mg/10ml UD cup OGT SCH ×2 (08:28→19:37)
[2021-01-12] MEDS: QUEtiapine 25mg tablet PO SCH ×2 (08:28→19:53)
[2021-01-12] MEDS: atorvastatin 10mg tablet OGT SCH (08:28)
[2021-01-12] MEDS: aspirin 81mg tab.chew OGT SCH (08:28)
[2021-01-12] MEDS: MULTIVIT-MIN/FERROUS GLUCONATE 9 MG/15 ML LIQUID OGT SCH (08:28)
[2021-01-12] MEDS: cyanocobalamin 500mcg tablet OGT SCH (08:28)
[2021-01-12] MEDS: ferrous sulfate 300mg/5ml UD oral liquid OGT SCH (08:28)
[2021-01-12] MEDS: azithromycin 200mg/5ml oral suspension 15ml bottle OGT SCH (08:29)
[2021-01-12] MEDS: nystatin 15 GM powder TP SCH ×3 (08:30→19:54)
[2021-01-12] MEDS: metoprolol tartrate 50mg tablet OGT SCH ×2 (09:17→19:37)
[2021-01-12] MEDS: losartan 50mg tablet OGT SCH (09:18)
--- NOTE | 2021-01-12 10:00 | NUR ---
INCONTINENT OF LARGE AMOUNT OF LOOSE STOOLS AND STILL PASSING STOOLS WHILE BEING CLEANED, RECTAL TUBE INSERTED PER ORDER OF DR DAMON. PATIENT TOLERATED INSERTION WELL.
--- NOTE | 2021-01-12 18:30 | NUR ---
Patient in room CICU 2014. I have received report from GRETA Mckeon and had the opportunity to ask questions and assume patient care.
[2021-01-13] VITALS (24 sets, daily range): BP systolic 93–213; BP diastolic 34–73
[2021-01-13] MEDS: dexmedetomidin/NS 400mcg/100ml 100 ML IV SCH (02:36)
[2021-01-13 02:56] LABS: BASOPHILS % (AUTO) 0.4 % (0-1); EOSINOPHILS # (AUTO) 0.3 X10'3 (0-0.9); EOSINOPHILS % (AUTO) 3.4 % (0-6); HEMATOCRIT 29.1 % (35.0-45.0); HEMOGLOBIN 9.6 g/dl (12.0-16.0); LYMPHOCYTES % (AUTO) 12.2 % (21-51); MEAN CORPUSCULAR HEMOGLOBIN 29.5 PG (27.0-31.0); MEAN CORPUSCULAR VOLUME 89.3 FL (78-98); MEAN PLATELET VOLUME 9.6 FL (7.4-10.4); MONOCYTES # (AUTO) 0.9 X10'3 (0-0.9); MONOCYTES % (AUTO) 10.7 % (2-12); NEUTROPHILS # (AUTO) 5.9 X10'3 (1.8-7.7); NEUTROPHILS % (AUTO) 73.3 % (42-75); PLATELET COUNT 233 X10'3 (140-440); RED BLOOD COUNT 3.26 X10'6 (4.20-5.60); RED CELL DISTRIBUTION WIDTH 14.3 % (11.5-14.5); WHITE BLOOD COUNT 8.1 X10'3 (4.5-11.0)
[2021-01-13 03:11] LABS: ABG BASE EXCESS -2.8 mmol/L (-2.0-2.0); ABG HCO3 21.5 mmol/L (22.0-26.0); ABG PCO2 (T) 35.4 mmHg (32.0-45.0); ALLEN'S TEST POSITIVE; FCOHb 0.3 % (0.0-3.9); FMetHb 0.3 % (0.0-1.5); FO2Hb 95.4 % (94-97); PEEP 5 cm H2O; RESPIRATORY RATE 16 b/min; TOTAL HEMOGLOBIN 10.2 G/dl (12.0-16.0)
[2021-01-13 03:17] LABS: ALBUMIN 1.8 G/DL (3.4-5.0); BLOOD UREA NITROGEN 40 MG/DL (7-18); BUN/CREATININE RATIO 29.9 (6.6-38.0); CALCIUM 8.2 MG/DL (8.5-10.1); CREATININE 1.34 MG/DL (0.40-0.90); GLUCOSE 133 MG/DL (70-104); MAGNESIUM 1.8 MG/DL (1.5-2.4); PHOSPHORUS 4.2 MG/DL (2.3-4.5); TOTAL CARBON DIOXIDE 23.6 MMOL/L (24-32); eGFR 38 ML/MIN
[2021-01-13 03:41] LABS: ANION GAP 10 (8-16); CHLORIDE 113 MMOL/L (99-107); POTASSIUM 3.8 MMOL/L (3.5-5.1); SODIUM 147 MMOL/L (135-145)
--- NOTE | 2021-01-13 06:06 | NUR ---
Problems reprioritized. Patient report given, questions answered & plan of care reviewed with GRETA Mckeon.
[2021-01-13] MEDS: K, MAG and/or Phos replacement - Verify level? MC SCH (08:00)
[2021-01-13] MEDS: MULTIVIT-MIN/FERROUS GLUCONATE 9 MG/15 ML LIQUID OGT SCH (08:12)
[2021-01-13] MEDS: azithromycin 200mg/5ml oral suspension 15ml bottle OGT SCH (08:12)
[2021-01-13] MEDS: ferrous sulfate 300mg/5ml UD oral liquid OGT SCH (08:12)
[2021-01-13] MEDS: piperacillin/tazo 3.375gm/50ml 50 ML IV SCH ×2 (08:12→15:33)
[2021-01-13] MEDS: docusate sodium 100mg/10ml UD cup OGT SCH ×2 (08:12→19:39)
[2021-01-13] MEDS: famotidine 20mg tablet OGT SCH ×2 (08:13→19:39)
[2021-01-13] MEDS: losartan 50mg tablet OGT SCH (08:13)
[2021-01-13] MEDS: atorvastatin 10mg tablet OGT SCH (08:13)
[2021-01-13] MEDS: lactobacillus rhamnosus 10,000 MMU CELLS/CAPSULE OGT SCH ×2 (08:13→19:39)
[2021-01-13] MEDS: cyanocobalamin 500mcg tablet OGT SCH (08:13)
[2021-01-13] MEDS: aspirin 81mg tab.chew OGT SCH (08:14)
[2021-01-13] MEDS: metoprolol tartrate 50mg tablet OGT SCH ×2 (08:14→19:41)
[2021-01-13] MEDS: QUEtiapine 25mg tablet PO SCH ×2 (08:15→19:40)
[2021-01-13] MEDS: nystatin 15 GM powder TP SCH ×3 (08:15→19:40)
[2021-01-13] MEDS: heparin, porcine 5000 units/ml vial SQ SCH ×2 (08:15→15:33)
[2021-01-13] MEDS ORDERED: VANCOMYCIN LEVEL IV ONE (08:30)
--- NOTE | 2021-01-13 11:36 | NUR ---
F/u 01/13: Pt Na 147 w/ 200ml Q4H free water flushes to start today per retail sales specialist; updated recs below. Addendum: 01/13/21 at [address] Amended: Links added. Addendum: 01/13/21 at [address] F/u 01/13: Pt Na 147 w/ 200ml Q4H free water flushes to start today per retail sales specialist; updated recs below. Recommendations: 1) Continuous Vital High Protein with 50 mL/hr goal rate to provide: 1200 mL total volume/day, 1200 kcal, 105 g protein, and 1003 mL water 2) water flush 200ml Q4H per retail sales specialist 3) Prealbumin q Monday/; Daily weights 4) Routine bowel care 5) Advance to regular diet as medically indicated following extubation following LIBRARY PAGE BSS
[2021-01-13] MEDS: hydrALAZINE 20mg/ml inj. IV PRN (19:31)
[2021-01-14] VITALS (25 sets, daily range): BP systolic 101–187; BP diastolic 37–83
[2021-01-14] MEDS: heparin, porcine 5000 units/ml vial SQ SCH ×4 (00:45→23:26)
[2021-01-14] MEDS: dexmedetomidin/NS 400mcg/100ml 100 ML IV SCH ×2 (00:46→22:44)
[2021-01-14] MEDS: piperacillin/tazo 3.375gm/50ml 50 ML IV SCH ×4 (00:47→23:25)
[2021-01-14 03:21] LABS: BASOPHILS # (AUTO) 0.1 X10'3 (0-0.2); BASOPHILS % (AUTO) 0.8 % (0-1); EOSINOPHILS # (AUTO) 0.2 X10'3 (0-0.9); EOSINOPHILS % (AUTO) 2.7 % (0-6); HEMATOCRIT 28.6 % (35.0-45.0); HEMOGLOBIN 9.5 g/dl (12.0-16.0); LYMPHOCYTES # (AUTO) 0.8 X10'3 (1.1-4.8); LYMPHOCYTES % (AUTO) 8.9 % (21-51); MEAN CORPUSCULAR HEMOGLOBIN 29.6 PG (27.0-31.0); MEAN CORPUSCULAR HGB CONC 33.2 g/dL (33.0-36.5); MEAN CORPUSCULAR VOLUME 89.3 FL (78-98); MEAN PLATELET VOLUME 9.7 FL (7.4-10.4); MONOCYTES # (AUTO) 0.9 X10'3 (0-0.9); MONOCYTES % (AUTO) 10.3 % (2-12); NEUTROPHILS # (AUTO) 6.9 X10'3 (1.8-7.7); NEUTROPHILS % (AUTO) 77.3 % (42-75); PLATELET COUNT 243 X10'3 (140-440); RED CELL DISTRIBUTION WIDTH 14.6 % (11.5-14.5); WHITE BLOOD COUNT 8.9 X10'3 (4.5-11.0)
[2021-01-14 03:36] LABS: ALBUMIN 1.8 G/DL (3.4-5.0); ANION GAP 8 (8-16); BLOOD UREA NITROGEN 45 MG/DL (7-18); BUN/CREATININE RATIO 28.1 (6.6-38.0); CALCIUM 8.2 MG/DL (8.5-10.1); CHLORIDE 113 MMOL/L (99-107); GLUCOSE 126 MG/DL (70-104); PHOSPHORUS 4.4 MG/DL (2.3-4.5); PREALBUMIN 14.7 MG/DL (19-36); SODIUM 146 MMOL/L (135-145); TOTAL CARBON DIOXIDE 24.9 MMOL/L (24-32); eGFR 31 ML/MIN
[2021-01-14 04:14] LABS: ABG BASE EXCESS -4.4 mmol/L (-2.0-2.0); ABG OXYGEN SATURATION 94.8 % (94-97); ABG PCO2 (T) 31.7 mmHg (32.0-45.0); ABG PO2 (T) 72.5 mmHg (75.0-100.0); ALLEN'S TEST POSITIVE; FCOHb 0.3 % (0.0-3.9); FMetHb 0.2 % (0.0-1.5); FO2Hb 94.3 % (94-97); PATIENT TEMPERATURE 35.5; PEEP 5 cm H2O; RESPIRATORY RATE 16 b/min; TOTAL HEMOGLOBIN 10.3 G/dl (12.0-16.0)
[2021-01-14] MEDS: cyanocobalamin 500mcg tablet OGT SCH (07:58)
[2021-01-14] MEDS: QUEtiapine 25mg tablet PO SCH ×2 (07:58→20:09)
[2021-01-14] MEDS: lactobacillus rhamnosus 10,000 MMU CELLS/CAPSULE OGT SCH ×2 (07:59→20:08)
[2021-01-14] MEDS: losartan 50mg tablet OGT SCH (08:00)
[2021-01-14] MEDS: K, MAG and/or Phos replacement - Verify level? MC SCH (08:00)
[2021-01-14] MEDS: aspirin 81mg tab.chew OGT SCH (08:00)
[2021-01-14] MEDS: MULTIVIT-MIN/FERROUS GLUCONATE 9 MG/15 ML LIQUID OGT SCH (08:01)
[2021-01-14] MEDS: metoprolol tartrate 50mg tablet OGT SCH ×2 (08:01→20:09)
[2021-01-14] MEDS: ferrous sulfate 300mg/5ml UD oral liquid OGT SCH (08:01)
[2021-01-14] MEDS: docusate sodium 100mg/10ml UD cup OGT SCH ×2 (08:01→20:00)
[2021-01-14] MEDS: atorvastatin 10mg tablet OGT SCH (08:01)
[2021-01-14] MEDS: nystatin 15 GM powder TP SCH ×3 (08:02→20:09)
[2021-01-14] MEDS: famotidine 20mg tablet OGT SCH ×2 (08:04→20:09)
[2021-01-14] MEDS ORDERED: dexamethasone 4mg/ml inj IV SCH (08:15)
[2021-01-14] MEDS ORDERED: dexamethasone sod phosphate 10mg/ml inj IV SCH (08:21)
[2021-01-14] MEDS: normal saline 1000ml 1,000 ML IV SCH (10:52)
--- NOTE | 2021-01-14 14:42 | NUR ---
Reassessment: Pt tolerating TF at goal GRV WNL. LBM 01/13. Serum Na downto 146 from 147 yesterday w/ 200ml Q4H free water per MD. Will continue to follow. Recommendations: 1) Continuous Vital High Protein with 50 mL/hr goal rate to provide: 1200 mL total volume/day, 1200 kcal, 105 g protein, and 1003 mL water 2) water flush 200ml Q4H per manager cleaning 3) Prealbumin q Monday/; Daily weights 4) Routine bowel care 5) Advance to regular diet as medically indicated following extubation w/ TITLE LAWYER BSS Addendum: 01/14/21 at [address] Amended: Links added.
[2021-01-14] MEDS: ipratropium/albuterol 3ml nebule NEB SCH ×3 (15:07→23:09)
--- NOTE | 2021-01-14 16:40 | NUR ---
Extubated at 1457, placed on 5l NC saturating in the 90's but patient was tachypneic. remains tachypneic and dsypneic and appears anxious, Dr Benedict made rounds and ordered patient to be placed on BIPAP. On Bipap at 1545, remains tachypneic, saturation in the 90's
[2021-01-14] MEDS: hydrALAZINE 20mg/ml inj. IV PRN (19:35)
[2021-01-14] MEDS ORDERED: haloperidol lactate 5mg/ml inj IM ONE (20:40)
[2021-01-15] VITALS (18 sets, daily range): BP systolic 103–188; BP diastolic 37–75
[2021-01-15] MEDS: dexmedetomidin/NS 400mcg/100ml 100 ML IV SCH (01:30)
[2021-01-15] MEDS: ipratropium/albuterol 3ml nebule NEB SCH ×6 (02:49→23:17)
[2021-01-15 02:58] LABS: ANION GAP 10 (8-16); BLOOD UREA NITROGEN 45 MG/DL (7-18); BUN/CREATININE RATIO 26.2 (6.6-38.0); CALCIUM 8.5 MG/DL (8.5-10.1); CHLORIDE 112 MMOL/L (99-107); CREATININE 1.72 MG/DL (0.40-0.90); GLUCOSE 134 MG/DL (70-104); MAGNESIUM 2.2 MG/DL (1.5-2.4); PHOSPHORUS 5.3 MG/DL (2.3-4.5); POTASSIUM 4.6 MMOL/L (3.5-5.1); SODIUM 146 MMOL/L (135-145); TOTAL CARBON DIOXIDE 24.2 MMOL/L (24-32); eGFR 28 ML/MIN
[2021-01-15 03:02] LABS: BASOPHILS % (AUTO) 0.3 % (0-1); EOSINOPHILS % (AUTO) 0.1 % (0-6); HEMATOCRIT 28.9 % (35.0-45.0); HEMOGLOBIN 9.6 g/dl (12.0-16.0); LYMPHOCYTES # (AUTO) 0.6 X10'3 (1.1-4.8); LYMPHOCYTES % (AUTO) 7.7 % (21-51); MEAN CORPUSCULAR VOLUME 90.8 FL (78-98); MEAN PLATELET VOLUME 10.2 FL (7.4-10.4); MONOCYTES # (AUTO) 0.6 X10'3 (0-0.9); MONOCYTES % (AUTO) 7.7 % (2-12); NEUTROPHILS # (AUTO) 6.5 X10'3 (1.8-7.7); NEUTROPHILS % (AUTO) 84.2 % (42-75); PLATELET COUNT 253 X10'3 (140-440); RED BLOOD COUNT 3.18 X10'6 (4.20-5.60); RED CELL DISTRIBUTION WIDTH 14.2 % (11.5-14.5); WHITE BLOOD COUNT 7.7 X10'3 (4.5-11.0)
[2021-01-15 07:35] LABS: ABG BASE EXCESS -2.2 mmol/L (-2.0-2.0); ABG HCO3 23.8 mmol/L (22.0-26.0); ABG OXYGEN SATURATION 96.2 % (94-97); ABG PCO2 (T) 43.8 mmHg (32.0-45.0); ABG PO2 (T) 86.3 mmHg (75.0-100.0); ALLEN'S TEST POSITIVE; FCOHb 0.3 % (0.0-3.9); FLOW 2 L/min; FMetHb 0.2 % (0.0-1.5); FO2Hb 95.7 % (94-97); PATIENT TEMPERATURE 35.9
[2021-01-15] MEDS: docusate sodium 100mg/10ml UD cup OGT SCH ×2 (08:00→20:00)
[2021-01-15] MEDS: heparin, porcine 5000 units/ml vial SQ SCH ×2 (08:00→16:00)
[2021-01-15] MEDS: metoprolol tartrate 50mg tablet OGT SCH ×2 (08:00→20:43)
[2021-01-15] MEDS: nystatin 15 GM powder TP SCH ×3 (08:00→20:44)
[2021-01-15] MEDS: K, MAG and/or Phos replacement - Verify level? MC SCH (08:00)
[2021-01-15] MEDS: cyanocobalamin 500mcg tablet OGT SCH (08:53)
[2021-01-15] MEDS: losartan 50mg tablet OGT SCH (08:53)
[2021-01-15] MEDS: lactobacillus rhamnosus 10,000 MMU CELLS/CAPSULE OGT SCH ×2 (08:53→20:43)
[2021-01-15] MEDS: MULTIVIT-MIN/FERROUS GLUCONATE 9 MG/15 ML LIQUID OGT SCH (08:53)
[2021-01-15] MEDS: famotidine 20mg tablet OGT SCH ×2 (08:53→20:43)
[2021-01-15] MEDS: QUEtiapine 25mg tablet PO SCH ×2 (08:54→20:43)
[2021-01-15] MEDS: atorvastatin 10mg tablet OGT SCH (08:54)
[2021-01-15] MEDS: aspirin 81mg tab.chew OGT SCH (08:54)
[2021-01-15] MEDS: piperacillin/tazo 3.375gm/50ml 50 ML IV SCH ×2 (08:54→20:44)
[2021-01-15] MEDS: ferrous sulfate 300mg/5ml UD oral liquid OGT SCH (08:57)
[2021-01-15] MEDS: dexamethasone 4mg/ml inj IV SCH ×2 (08:57→20:44)
[2021-01-15] MEDS: hydrALAZINE 20mg/ml inj. IV PRN ×2 (10:40→23:47)
[2021-01-15] MEDS: normal saline 1000ml 1,000 ML IV SCH ×2 (10:40→12:55)
[2021-01-15] MEDS ORDERED: metoprolol tartrate 50mg tablet PO ONE (12:25)
--- NOTE | 2021-01-15 12:55 | NUR ---
F/u 01/15: Pt extubated yesterday advanced to pureed/thin/heart healthy diet per TIE LAYER/MD recs PO meals pending. RN reports liquid BM's at rounds though pt receiving routine colace and only smears documented since 01/12 per EMR. Will monitor for PO trends and ONS needs this admit. Recommendations: 1) Advance to regular diet as medically indicated per TIE LAYER/MD recs; consider heart healthy restriction if PO consistently at least 65% avg meals 2) monitor for ONS needs pending PO trends 3) bowel care per rx; liquid stool per RN though smears past 3 days only noted in EMR 4) weekly wts Addendum: 01/15/21 at [address] Amended: Links added. Addendum: 01/15/21 at [address] F/u 01/15: Pt extubated yesterday advanced to pureed/thin/heart healthy diet per TIE LAYER/MD recs PO meals pending. RN reports liquid BM's at rounds though pt receiving routine colace. Will monitor for PO trends and ONS needs this admit. Recommendations: 1) Advance to regular diet as medically indicated per TIE LAYER/MD recs; consider heart healthy restriction if PO consistently at least 65% avg meals 2) monitor for ONS needs pending PO trends 3) bowel care per rx 4) weekly wts
[2021-01-15] MEDS ORDERED: LORazepam 2 mg/ml vial ONE (13:04)
[2021-01-15] MEDS ORDERED: furosemide 40mg/4ml inj IV ONE (13:40)
--- NOTE | 2021-01-15 16:30 | NUR ---
pt arrive martinez rthis time. receive pt from Naresh HERNANDES. pt is a/ox3, rr 20's to 30's, sat 96% 2Lnc. ls diminished, bs positive, liquid stool in rectal tube, yellow urine with blood sediment in f/c. coccyx has protective dressing ( skin in good condition beneath), pt talkative, transfer to bed by slide board. IV 50ml/hr of NS. set HOb 35 degrees. pt says she feels" like i'm doing ok, can i go home yet?"
--- NOTE | 2021-01-15 18:39 | NUR ---
Problems reprioritized. Patient report given, questions answered & plan of care reviewed with beltran schwartz.
--- NOTE | 2021-01-15 18:43 | NUR ---
Patient in room PCU 3023. I have received report from Kel HERNANDES and had the opportunity to ask questions and assume patient care.
--- NOTE | 2021-01-15 23:25 | NUR ---
tried to mput bipap on patient to reduce work of breathing. patient ripped mask off and scratched my arm with her fingernails. placed back on nasal cannula 2 l . Addendum: 01/15/21 at 2329 by Radha [address] RT Amended: Links added.
[2021-01-16] VITALS (9 sets, daily range): BP systolic 105–196; BP diastolic 46–99
--- NOTE | 2021-01-16 01:30 | NUR ---
Pt placed on BiPap though very combative. MD notified. Restrained per order, bilat wrists. BiPap FiO2 increased to 40% per MD.
[2021-01-16] MEDS ORDERED: furosemide 40mg/4ml inj IV ONE (02:00)
[2021-01-16] MEDS ORDERED: cloNIDine 0.1 mg tablet PO ONE (02:00)
[2021-01-16] MEDS: ipratropium/albuterol 3ml nebule NEB SCH ×6 (03:27→23:25)
--- NOTE | 2021-01-16 07:17 | NUR ---
Problems reprioritized. Patient report given, questions answered & plan of care reviewed with Kel HERNANDES.
[2021-01-16] MEDS: nystatin 15 GM powder TP SCH ×3 (08:00→20:12)
[2021-01-16] MEDS: K, MAG and/or Phos replacement - Verify level? MC SCH (08:00)
[2021-01-16] MEDS: docusate sodium 100mg/10ml UD cup OGT SCH ×2 (08:00→19:35)
[2021-01-16] MEDS: ferrous sulfate 325mg tablet PO SCH (08:05)
[2021-01-16] MEDS: lactobacillus rhamnosus 10,000 MMU CELLS/CAPSULE OGT SCH ×2 (08:05→19:36)
[2021-01-16] MEDS: atorvastatin 10mg tablet OGT SCH (08:05)
[2021-01-16] MEDS: aspirin 81mg tab.chew OGT SCH (08:05)
[2021-01-16] MEDS: multivitamins, therapeutics tablet PO SCH (08:08)
[2021-01-16] MEDS: cyanocobalamin 500mcg tablet OGT SCH (08:08)
[2021-01-16] MEDS: losartan 50mg tablet OGT SCH (08:08)
[2021-01-16] MEDS: famotidine 20mg tablet OGT SCH ×2 (08:09→19:35)
[2021-01-16] MEDS: QUEtiapine 25mg tablet PO SCH ×2 (08:09→19:34)
[2021-01-16] MEDS: metoprolol tartrate 50mg tablet OGT SCH ×2 (08:09→19:35)
[2021-01-16 08:15] LABS: BASOPHILS # (AUTO) 0.1 X10'3 (0-0.2); BASOPHILS % (AUTO) 0.4 % (0-1); EOSINOPHILS % (AUTO) 0 % (0-6); HEMATOCRIT 33.2 % (35.0-45.0); HEMOGLOBIN 11.2 g/dl (12.0-16.0); LYMPHOCYTES # (AUTO) 0.6 X10'3 (1.1-4.8); LYMPHOCYTES % (AUTO) 4.6 % (21-51); MEAN CORPUSCULAR HEMOGLOBIN 29.8 PG (27.0-31.0); MEAN CORPUSCULAR HGB CONC 33.6 g/dL (33.0-36.5); MEAN CORPUSCULAR VOLUME 88.7 FL (78-98); MEAN PLATELET VOLUME 9.3 FL (7.4-10.4); MONOCYTES # (AUTO) 0.9 X10'3 (0-0.9); MONOCYTES % (AUTO) 6.4 % (2-12); NEUTROPHILS # (AUTO) 12.1 X10'3 (1.8-7.7); NEUTROPHILS % (AUTO) 88.6 % (42-75); PLATELET COUNT 377 X10'3 (140-440); RED BLOOD COUNT 3.74 X10'6 (4.20-5.60); RED CELL DISTRIBUTION WIDTH 14.6 % (11.5-14.5); WHITE BLOOD COUNT 13.7 X10'3 (4.5-11.0)
[2021-01-16 08:44] LABS: ALBUMIN 2.8 G/DL (3.4-5.0); ANION GAP 15 (8-16); BLOOD UREA NITROGEN 56 MG/DL (7-18); BUN/CREATININE RATIO 29.8 (6.6-38.0); CALCIUM 9.3 MG/DL (8.5-10.1); CHLORIDE 109 MMOL/L (99-107); CREATININE 1.88 MG/DL (0.40-0.90); GLUCOSE 102 MG/DL (70-104); MAGNESIUM 2.3 MG/DL (1.5-2.4); PHOSPHORUS 5.2 MG/DL (2.3-4.5); POTASSIUM 4.4 MMOL/L (3.5-5.1); SODIUM 148 MMOL/L (135-145); TOTAL CARBON DIOXIDE 24.3 MMOL/L (24-32); eGFR 25 ML/MIN
--- NOTE | 2021-01-16 09:45 | NUR ---
Discussed pt need for bipap t/o noc, increase in BNP from 7400 to 16507 as well as cr and bun increases to 1.8 and 56 after lasix doses in last 24hrs with MD Olguin. Awaiting orders.
[2021-01-16] MEDS: piperacillin/tazo 3.375gm/50ml 50 ML IV SCH ×2 (10:20→19:33)
[2021-01-16] MEDS: normal saline 1000ml 1,000 ML IV SCH (10:20)
[2021-01-16] MEDS: heparin, porcine 5000 units/ml vial SQ SCH ×2 (10:20)
--- NOTE | 2021-01-16 10:30 | NUR ---
Pt is very clear that she does not want to use the bipap, she is not consistently oriented x3
--- NOTE | 2021-01-16 11:00 | NUR ---
pt sating well 95-97% 3lnc, desat to 89 on 2L and had some hallucinations as well as mild drop in orientation. improved with increase to 3lnc
[2021-01-16] MEDS: dexamethasone 4mg/ml inj IV SCH (11:15)
[2021-01-16] MEDS: furosemide 40mg/4ml inj IV SCH ×2 (11:22→19:34)
--- NOTE | 2021-01-16 13:15 | NUR ---
Spoke at length to grandson Melo Morales regarding his wishes for pt to not have bipap or restraint used as these would be against her wishes. He is aware at times she is not fully oriented and unable to make good decisions and wants to be contacted if action needs to be taken, in order to guide decision making. Discussed with charge nurse steps to ensure Melo is updated as he is acting as DPA for Celeste at this point per his request.
--- NOTE | 2021-01-16 14:15 | NUR ---
Paged md Braswell to explain DPA wishes.
--- NOTE | 2021-01-16 15:44 | NUR ---
PAGER ID: [phone] MESSAGE: [phone] Celeste Aguilar- please call. DPA, Heparin and DNR status- [id number]
--- NOTE | 2021-01-16 15:51 | NUR ---
MD Olguin called back, updated her on heparin and hematuria in f/c- received orders. Also informed her of Melo Morales's wishes to be informed of all status changes on patient as mentioned in other note- gave md cresencio juarez number [phone]- and that he would want to know of DNR change directly from her. She said she would likely not call him today.
[2021-01-16] MEDS: hydrALAZINE 20mg/ml inj. IV PRN ×2 (16:30→20:07)
--- NOTE | 2021-01-16 18:31 | NUR ---
discussed pink urine with md dupont and yuri today. urine became more pink after heparin sq today. urine cleared as day passed and orders obtained from to [facility] heparin.
--- NOTE | 2021-01-16 18:55 | NUR ---
Patient in room PCU 3012. I have received report from Eduardo HERNANDES and had the opportunity to ask questions and assume patient care. RN STATED DURABLE POA NEEDS NOTIFICATION BY DR. DARDEN/HOSPITALIST THAT PATIENTS CODE STATUS CHANGED TO DNR/DNI. KATALINA WAS NOTIFIED, DID NOT CALL POA. WILL CALL TRAINING SYSTEMS OFFICER HOSPITALIST TO FOLLOW UP. JOSEE HERNANDES
[2021-01-16] MEDS: cloNIDine 0.1 mg tablet PO SCH (19:36)
[2021-01-16] MEDS: LORazepam 2 mg/ml vial IV PRN (20:03)
--- NOTE | 2021-01-16 20:26 | NUR ---
PATIENT HR JUMPED TO 190'S, BP 160'S-HYDRALIZINE, AND ATIVAN GIVEN ALONG WITH 2000 MEDS. EKG PERFORMED, AFIB RVR WITH MD NASIR NOTIFIED., AWAITING CALL BACK. CHOLMESRN Addendum: 01/16/21 at 2107 by Elyssa Bradshaw RN MD Briones called back, ordered luzmaria wakefield HR (se EMAR) and is aware she has GIB, needs to be anticoagulated, and is on asa 81 mg daily in am. will start with 15 mg cardizem iv X1 NOW.
--- NOTE | 2021-01-16 21:00 | NUR ---
PATIENT REQUESTED BIPAP . PATIENT WAS PUT ON BIPAP, TOLERATING WELL, NOT ATTEMPTING TO EMOVE MASK. JOSEE HERNANDES
[2021-01-16] MEDS ORDERED: diltiazem 5mg/ml 5ml inj. IV ONE ×2 (21:10)
[2021-01-16] MEDS ORDERED: diltiazem-NS 100mg/100ml 125 ML IV SCH (21:15)
[2021-01-17] VITALS (8 sets, daily range): BP systolic 88–182; BP diastolic 43–83
[2021-01-17] MEDS: hydrALAZINE 20mg/ml inj. IV PRN (02:12)
[2021-01-17] MEDS: ipratropium/albuterol 3ml nebule NEB SCH ×7 (03:21→23:19)
--- NOTE | 2021-01-17 06:30 | NUR ---
Patient in room PCU 3012. I have received report from Elyssa HERNANDES and had the opportunity to ask questions and assume patient care.
--- NOTE | 2021-01-17 06:35 | NUR ---
Problems reprioritized. Patient report given, questions answered & plan of care reviewed with RAJNI HERNANDES.
[2021-01-17] MEDS ORDERED: aspirin 81mg tab.chew PO SCH (07:31)
[2021-01-17] MEDS ORDERED: acetaminophen 325mg/10.15ml oral unit dose solution PO PRN (07:31)
[2021-01-17] MEDS: K, MAG and/or Phos replacement - Verify level? MC SCH (08:00)
[2021-01-17] MEDS: docusate sodium 100mg/10ml UD cup PO SCH ×2 (08:00→20:00)
[2021-01-17] MEDS ORDERED: famotidine 20mg tablet OGT SCH (08:00)
[2021-01-17] MEDS: aspirin 81mg tab.chew PO SCH (08:32)
[2021-01-17] MEDS: furosemide 40mg/4ml inj IV SCH ×2 (08:32→19:56)
[2021-01-17] MEDS: cloNIDine 0.1 mg tablet PO SCH ×2 (08:33→20:00)
[2021-01-17] MEDS: famotidine 20mg tablet PO SCH ×2 (08:33→20:00)
[2021-01-17] MEDS: lactobacillus rhamnosus 10,000 MMU CELLS/CAPSULE PO SCH ×2 (08:33→20:00)
[2021-01-17] MEDS: losartan 50mg tablet PO SCH (08:34)
[2021-01-17] MEDS: cyanocobalamin 500mcg tablet PO SCH (08:35)
[2021-01-17] MEDS: metoprolol tartrate 50mg tablet PO SCH ×2 (08:35→19:55)
[2021-01-17] MEDS: QUEtiapine 25mg tablet PO SCH ×2 (08:35→19:55)
[2021-01-17] MEDS: atorvastatin 10mg tablet PO SCH (08:35)
[2021-01-17] MEDS: piperacillin/tazo 3.375gm/50ml 50 ML IV SCH ×2 (08:36→16:40)
[2021-01-17] MEDS: ferrous sulfate 325mg tablet PO SCH (08:36)
[2021-01-17] MEDS: multivitamins, therapeutics tablet PO SCH (08:36)
[2021-01-17] MEDS: nystatin 15 GM powder TP SCH ×3 (08:39→21:09)
[2021-01-17] MEDS: dexamethasone 4mg/ml inj IV SCH (08:53)
--- NOTE | 2021-01-17 09:40 | NUR ---
Patient in room PCU 3012. I have received report from Elyssa Jimenez and had the opportunity to ask questions and assume patient care.
[2021-01-17] MEDS ORDERED: diltiazem-NS 100mg/100ml 100 ML IV SCH ×2 (10:18→17:25)
[2021-01-17 10:58] LABS: BASOPHILS % (AUTO) 0.2 % (0-1); EOSINOPHILS % (AUTO) 0.3 % (0-6); HEMATOCRIT 29.2 % (35.0-45.0); HEMOGLOBIN 9.7 g/dl (12.0-16.0); LYMPHOCYTES # (AUTO) 0.4 X10'3 (1.1-4.8); LYMPHOCYTES % (AUTO) 3.8 % (21-51); MEAN CORPUSCULAR HEMOGLOBIN 29.5 PG (27.0-31.0); MEAN CORPUSCULAR HGB CONC 33.2 g/dL (33.0-36.5); MEAN CORPUSCULAR VOLUME 88.8 FL (78-98); MEAN PLATELET VOLUME 9.2 FL (7.4-10.4); MONOCYTES # (AUTO) 0.7 X10'3 (0-0.9); MONOCYTES % (AUTO) 6.4 % (2-12); NEUTROPHILS # (AUTO) 10.4 X10'3 (1.8-7.7); NEUTROPHILS % (AUTO) 89.3 % (42-75); PLATELET COUNT 315 X10'3 (140-440); RED BLOOD COUNT 3.28 X10'6 (4.20-5.60); RED CELL DISTRIBUTION WIDTH 14.5 % (11.5-14.5); WHITE BLOOD COUNT 11.6 X10'3 (4.5-11.0)
[2021-01-17 11:03] LABS: ALBUMIN 2.5 G/DL (3.4-5.0); ANION GAP 11 (8-16); BLOOD UREA NITROGEN 66 MG/DL (7-18); BUN/CREATININE RATIO 32.5 (6.6-38.0); CALCIUM 8.4 MG/DL (8.5-10.1); CHLORIDE 109 MMOL/L (99-107); CREATININE 2.03 MG/DL (0.40-0.90); GLUCOSE 96 MG/DL (70-104); MAGNESIUM 2.2 MG/DL (1.5-2.4); PHOSPHORUS 4.5 MG/DL (2.3-4.5); SODIUM 148 MMOL/L (135-145); TOTAL CARBON DIOXIDE 28.2 MMOL/L (24-32); eGFR 23 ML/MIN
[2021-01-17] MEDS ORDERED: amiodarone 200mg tablet PO ONE (11:05)
[2021-01-17] MEDS ORDERED: diltiazem 5mg/ml 5ml inj. IV ONE ×2 (11:15→17:10)
[2021-01-17] MEDS ORDERED: diltiazem 5mg/ml 5ml inj. IV PRN (11:35)
[2021-01-17 13:36] LABS: ABG BASE EXCESS 2.3 mmol/L (-2.0-2.0); ABG HCO3 27.4 mmol/L (22.0-26.0); ABG PCO2 (T) 44.6 mmHg (32.0-45.0); ABG PO2 (T) 73.1 mmHg (75.0-100.0); ALLEN'S TEST POSITIVE; FCOHb 0.1 % (0.0-3.9); FLOW 3 L/min; FMetHb 0.1 % (0.0-1.5); FO2Hb 93.8 % (94-97); TOTAL HEMOGLOBIN 11.1 G/dl (12.0-16.0)
[2021-01-17 15:20] LABS: CLARITY,URINE CLOUDY (Clear); COLOR,URINE YELLOW (Yellow); GLUCOSE, URINE NEGATIVE (Neg); KETONES,URINE NEGATIVE (Neg); LEUKOCYTE ESTERASE ,URINE SMALL (Neg); NITRITES, URINE NEGATIVE (Neg); OCCULT BLOOD,URINE LARGE (Neg); PROTEIN,URINE NEGATIVE (Neg); UROBILINOGEN,URINE 0.2 E.U/dL (0.2-1.0)
[2021-01-17 15:21] LABS: UA COLLECTION TYPE FOLEY CATH
[2021-01-17 15:38] LABS: SQUAMOUS EPITHELIAL CELL,UR FEW /LPF (FEW)
[2021-01-17 15:39] LABS: RBC,URINE TNTC /HPF (0-2); WBC CLUMPS,URINE FEW /HPF (NEGATIVE)
[2021-01-17 15:40] LABS: WBC,URINE 50-100 /HPF (0-4)
[2021-01-17 15:41] LABS: BACTERIA,URINE FEW /HPF (Neg)
--- NOTE | 2021-01-17 17:02 | NUR ---
PAGER ID: [phone] MESSAGE: [id number] Celeste Aguilar. HR 150 gave IV push Cardizem 15mg. Should I give Cardizem again or dig? BRANDON Jones
--- NOTE | 2021-01-17 17:10 | NUR ---
PAGER ID: [phone] MESSAGE: [id number] Celeste Aguilar. Rhythm change Afib at 1639, SVT 1650, ST now 150s.. Please advise. BRANDON Jones
[2021-01-17] MEDS: diltiazem-NS 100mg/100ml 100 ML IV SCH (17:25)
--- NOTE | 2021-01-17 17:55 | NUR ---
Paged Dr. Bro PAGER ID: [phone] MESSAGE: [phone] Celestetanna Aguilar. Heart rate 150s-160s still afib. BP 88/59 MAP 66. Do you want me to increase Cardizem to 10 mg? PCU Crystal
[2021-01-17] MEDS ORDERED: digoxin 250mcg/ml 2ml ampule IV ONE (18:00)
--- NOTE | 2021-01-17 18:37 | NUR ---
Problems reprioritized. Patient report given, questions answered & plan of care reviewed with Jennie HERNANDES.
--- NOTE | 2021-01-17 18:43 | NUR ---
[place] Medication Administration: For this medication-pass time frame, all medication were reviewed, dispensed, administered and documented per hospital policy by Natalio HERNANDES.
--- NOTE | 2021-01-17 18:43 | NUR ---
[place] documentation: I have reviewed and agree with all interventions, assessments performed and documented by Natalio HERNANDES.
[2021-01-17] MEDS: amiodarone 200mg tablet PO SCH (19:56)
[2021-01-18] VITALS (12 sets, daily range): BP systolic 115–169; BP diastolic 45–93
--- NOTE | 2021-01-18 00:18 | NUR ---
spoke with dr. robert, ok to not give digoxin. pt is back in sinus rythm in 60s. PO amio on board. Card gtt still running at 5.
[2021-01-18] MEDS: ipratropium/albuterol 3ml nebule NEB SCH ×6 (03:00→23:44)
--- NOTE | 2021-01-18 03:06 | NUR ---
pt is currently refusing to wear her oxygen, sitter attempting to replace it and she removes it again. will continue to monitor
--- NOTE | 2021-01-18 05:19 | NUR ---
pt still refusing to wear oxygen. she told aide to "go to hell". Rn just tried to put it back on and she woke and shook her head and adamantly refused it. informed her her oxygen levels were very low (75) which is not good for her brain. She replied "I will put it on when I am ready" and grabbed tubing from RN hand. slurry tank tender stated that POA does not want the patient restrained. She had been restrained earlier in her stay and it was not acceptable to him.
--- NOTE | 2021-01-18 05:59 | NUR ---
walked into room and checked on pt. sats 77%. She lifted up the oxygen tubing and waved it at RN. RN asked if she was ready to put it on. She stated NO!
[2021-01-18] MEDS ORDERED: digoxin 250mcg/ml 2ml ampule IV ONE ×2 (06:00)
--- NOTE | 2021-01-18 06:11 | NUR ---
Problems reprioritized. Patient report given, questions answered & plan of care reviewed with Tiffani and Brigette RNs.
--- NOTE | 2021-01-18 06:35 | NUR ---
Patient in room PCU 3012. I have received report from Jennie HERNANDES and had the opportunity to ask questions and assume patient care.
--- NOTE | 2021-01-18 06:47 | NUR ---
Patient in room PCU 3012. I have received report from Jennie Jimenez and had the opportunity to ask questions and assume patient care.
--- NOTE | 2021-01-18 06:48 | NUR ---
Pt refusing to wear oxygen or bipap. Education given Sats in the 70's. Per report pt has refused oxygen through the night. notified.
[2021-01-18 07:03] LABS: BASOPHILS % (AUTO) 0.2 % (0-1); EOSINOPHILS % (AUTO) 0.3 % (0-6); HEMATOCRIT 33.8 % (35.0-45.0); HEMOGLOBIN 10.9 g/dl (12.0-16.0); LYMPHOCYTES # (AUTO) 1.5 X10'3 (1.1-4.8); LYMPHOCYTES % (AUTO) 12.3 % (21-51); MEAN CORPUSCULAR HEMOGLOBIN 29.6 PG (27.0-31.0); MEAN CORPUSCULAR HGB CONC 32.4 g/dL (33.0-36.5); MEAN CORPUSCULAR VOLUME 91.5 FL (78-98); MEAN PLATELET VOLUME 9.2 FL (7.4-10.4); MONOCYTES # (AUTO) 1.2 X10'3 (0-0.9); MONOCYTES % (AUTO) 9.5 % (2-12); NEUTROPHILS # (AUTO) 9.5 X10'3 (1.8-7.7); NEUTROPHILS % (AUTO) 77.7 % (42-75); PLATELET COUNT 332 X10'3 (140-440); RED BLOOD COUNT 3.69 X10'6 (4.20-5.60); WHITE BLOOD COUNT 12.3 X10'3 (4.5-11.0)
[2021-01-18 07:21] LABS: ALBUMIN 2.7 G/DL (3.4-5.0); ANION GAP 12 (8-16); BLOOD UREA NITROGEN 72 MG/DL (7-18); BUN/CREATININE RATIO 33.8 (6.6-38.0); CALCIUM 8.5 MG/DL (8.5-10.1); CHLORIDE 108 MMOL/L (99-107); CREATININE 2.13 MG/DL (0.40-0.90); GLUCOSE 86 MG/DL (70-104); MAGNESIUM 2.7 MG/DL (1.5-2.4); PHOSPHORUS 4.6 MG/DL (2.3-4.5); SODIUM 147 MMOL/L (135-145); TOTAL CARBON DIOXIDE 27.2 MMOL/L (24-32); eGFR 22 ML/MIN
[2021-01-18] MEDS: K, MAG and/or Phos replacement - Verify level? MC SCH (08:00)
[2021-01-18] MEDS: docusate sodium 100mg/10ml UD cup PO SCH ×2 (08:19→19:53)
[2021-01-18] MEDS: dexamethasone 4mg/ml inj IV SCH (08:20)
[2021-01-18] MEDS: losartan 50mg tablet PO SCH (08:20)
[2021-01-18] MEDS: furosemide 40mg/4ml inj IV SCH ×2 (08:20→19:54)
[2021-01-18] MEDS: metoprolol tartrate 50mg tablet PO SCH ×2 (08:20→19:53)
[2021-01-18] MEDS: aspirin 81mg tab.chew PO SCH (08:20)
[2021-01-18] MEDS: cloNIDine 0.1 mg tablet PO SCH ×2 (08:21→19:54)
[2021-01-18] MEDS: piperacillin/tazo 3.375gm/50ml 50 ML IV SCH ×2 (08:21→19:54)
[2021-01-18] MEDS: cyanocobalamin 500mcg tablet PO SCH (08:21)
[2021-01-18] MEDS: QUEtiapine 25mg tablet PO SCH ×2 (08:21→19:54)
[2021-01-18] MEDS: amiodarone 200mg tablet PO SCH ×2 (08:21→19:53)
[2021-01-18] MEDS: lactobacillus rhamnosus 10,000 MMU CELLS/CAPSULE PO SCH ×2 (08:21→19:53)
[2021-01-18] MEDS: ferrous sulfate 325mg tablet PO SCH (08:21)
[2021-01-18] MEDS: multivitamins, therapeutics tablet PO SCH (08:21)
[2021-01-18] MEDS: famotidine 20mg tablet PO SCH ×2 (08:21→19:53)
[2021-01-18] MEDS: atorvastatin 10mg tablet PO SCH (08:21)
[2021-01-18] MEDS: nystatin 15 GM powder TP SCH ×3 (08:55→20:20)
--- NOTE | 2021-01-18 11:52 | NUR ---
F/u 01/18: Pt PO intake continues to be low on oral diet, avg 25% x 7 meals. RN reports pt remains confused and pt's grandson will bring in food and encourage pt to eat, but she still refuses. Pt continues to refuse oxygen or BIPAP per EMR. No N/V/D reported, LBM 01/15 w/ only smears today even though recieving routine colace per RN. Intake inadequate, current diet tolerated. Will continue to monitor. Recommendations: 1) Continue w/ current diet as tolerated 2) Ensure Enlive TID 3) bowel care per rx 4) weekly wts Addendum: 01/18/21 at [address] Amended: Links added.
[2021-01-18] MEDS: diltiazem-NS 100mg/100ml 100 ML IV SCH (12:05)
[2021-01-18] MEDS: lactose-reduced food (Ensure Enlive) - 237ml bottle PO SCH ×2 (13:00→18:56)
--- NOTE | 2021-01-18 18:29 | NUR ---
Patient in room PCU 3012. I have received report from Natalio perry RN and had the opportunity to ask questions and assume patient care.
--- NOTE | 2021-01-18 18:48 | NUR ---
Problems reprioritized. Patient report given, questions answered & plan of care reviewed with George HERNANDES.
[2021-01-19] VITALS (7 sets, daily range): BP systolic 122–201; BP diastolic 35–79
[2021-01-19 00:26] LABS: CLARITY,URINE CLEAR (Clear); COLOR,URINE YELLOW (Yellow); GLUCOSE, URINE NEGATIVE (Neg); KETONES,URINE NEGATIVE (Neg); LEUKOCYTE ESTERASE ,URINE TRACE (Neg); NITRITES, URINE NEGATIVE (Neg); OCCULT BLOOD,URINE LARGE (Neg); PROTEIN,URINE NEGATIVE (Neg); UROBILINOGEN,URINE 0.2 E.U/dL (0.2-1.0)
[2021-01-19] MEDS: LORazepam 2 mg/ml vial IV PRN (00:29)
[2021-01-19 00:34] LABS: UA COLLECTION TYPE CLN CATCH MIDSTREAM
[2021-01-19 00:35] LABS: BACTERIA,URINE NONE SEEN /HPF (Neg); RBC,URINE TNTC /HPF (0-2); SQUAMOUS EPITHELIAL CELL,UR NONE SEEN /LPF (FEW); WBC,URINE 0-4 /HPF (0-4)
[2021-01-19] MEDS: ipratropium/albuterol 3ml nebule NEB SCH ×6 (02:38→23:00)
--- NOTE | 2021-01-19 06:00 | NUR ---
Patient in room PCU 3012. I have received report from George HERNANDES and had the opportunity to ask questions and assume patient care.
--- NOTE | 2021-01-19 06:21 | NUR ---
Problems reprioritized. Patient report given, questions answered & plan of care reviewed with lana Rodriguez.
[2021-01-19 07:26] LABS: ALBUMIN 2.8 G/DL (3.4-5.0); ANION GAP 11 (8-16); BLOOD UREA NITROGEN 76 MG/DL (7-18); BUN/CREATININE RATIO 34.5 (6.6-38.0); CALCIUM 8.4 MG/DL (8.5-10.1); CHLORIDE 106 MMOL/L (99-107); GLUCOSE 99 MG/DL (70-104); MAGNESIUM 2.5 MG/DL (1.5-2.4); PHOSPHORUS 4.3 MG/DL (2.3-4.5); POTASSIUM 4.3 MMOL/L (3.5-5.1); SODIUM 145 MMOL/L (135-145); TOTAL CARBON DIOXIDE 28.3 MMOL/L (24-32); eGFR 21 ML/MIN
[2021-01-19] MEDS: lactose-reduced food (Ensure Enlive) - 237ml bottle PO SCH ×3 (08:00→18:00)
[2021-01-19] MEDS: multivitamins, therapeutics tablet PO SCH (08:00)
[2021-01-19] MEDS: K, MAG and/or Phos replacement - Verify level? MC SCH (08:00)
[2021-01-19] MEDS: dexamethasone 4mg/ml inj IV SCH (09:17)
[2021-01-19] MEDS: piperacillin/tazo 3.375gm/50ml 50 ML IV SCH ×2 (09:20→21:20)
[2021-01-19] MEDS: QUEtiapine 25mg tablet PO SCH ×2 (09:21→21:18)
[2021-01-19] MEDS: famotidine 20mg tablet PO SCH ×2 (09:22→21:18)
[2021-01-19] MEDS: atorvastatin 10mg tablet PO SCH (09:22)
[2021-01-19] MEDS: aspirin 81mg tab.chew PO SCH (09:22)
[2021-01-19] MEDS: cyanocobalamin 500mcg tablet PO SCH (09:23)
[2021-01-19] MEDS: ferrous sulfate 325mg tablet PO SCH (09:23)
[2021-01-19] MEDS: metoprolol tartrate 50mg tablet PO SCH ×2 (09:23→21:19)
[2021-01-19] MEDS: cloNIDine 0.1 mg tablet PO SCH ×2 (09:24→21:19)
[2021-01-19] MEDS: lactobacillus rhamnosus 10,000 MMU CELLS/CAPSULE PO SCH ×2 (09:24→21:19)
[2021-01-19] MEDS: amiodarone 200mg tablet PO SCH ×2 (09:24→21:19)
[2021-01-19] MEDS: docusate sodium 100mg/10ml UD cup PO SCH ×2 (09:26→21:19)
[2021-01-19] MEDS: nystatin 15 GM powder TP SCH ×3 (09:28→21:20)
[2021-01-19 16:30] LABS: BASOPHILS % (AUTO) 0.2 % (0-1); EOSINOPHILS % (AUTO) 0 % (0-6); HEMATOCRIT 30.3 % (35.0-45.0); HEMOGLOBIN 10.1 g/dl (12.0-16.0); LYMPHOCYTES # (AUTO) 0.3 X10'3 (1.1-4.8); LYMPHOCYTES % (AUTO) 2.2 % (21-51); MEAN CORPUSCULAR HEMOGLOBIN 29.6 PG (27.0-31.0); MEAN CORPUSCULAR HGB CONC 33.3 g/dL (33.0-36.5); MEAN PLATELET VOLUME 8.7 FL (7.4-10.4); MONOCYTES # (AUTO) 0.3 X10'3 (0-0.9); MONOCYTES % (AUTO) 1.8 % (2-12); NEUTROPHILS # (AUTO) 13.6 X10'3 (1.8-7.7); NEUTROPHILS % (AUTO) 95.8 % (42-75); PLATELET COUNT 321 X10'3 (140-440); RED BLOOD COUNT 3.41 X10'6 (4.20-5.60); RED CELL DISTRIBUTION WIDTH 14.2 % (11.5-14.5); WHITE BLOOD COUNT 14.2 X10'3 (4.5-11.0)
--- NOTE | 2021-01-19 18:21 | NUR ---
Problems reprioritized. Patient report given, questions answered & plan of care reviewed with George HERNANDES.
--- NOTE | 2021-01-19 18:32 | NUR ---
Patient in room PCU 3012. I have received report from Renate HERNANDES and had the opportunity to ask questions and assume patient care.
[2021-01-19] MEDS: hydrALAZINE 20mg/ml inj. IV PRN (21:40)
[2021-01-20] MEDS: ipratropium/albuterol 3ml nebule NEB SCH ×4 (02:58→16:30)
--- NOTE | 2021-01-20 03:23 | NUR ---
Pt is on 2L NC resting comfortably. Pt has been off BiPAP all night and is oxygenating well and has no increased work of breathing. Pt appears comfortable at this time.
[2021-01-20 06:00] VITALS: BP 174/62
--- NOTE | 2021-01-20 06:00 | NUR ---
Patient in room PCU 3012. I have received report from George HERNANDES and had the opportunity to ask questions and assume patient care.
--- NOTE | 2021-01-20 06:17 | NUR ---
Problems reprioritized. Patient report given, questions answered & plan of care reviewed with GRETA Dewitt.
[2021-01-20 07:06] LABS: BASOPHILS % (AUTO) 0.2 % (0-1); EOSINOPHILS # (AUTO) 0.2 X10'3 (0-0.9); HEMATOCRIT 33.4 % (35.0-45.0); LYMPHOCYTES # (AUTO) 1.6 X10'3 (1.1-4.8); LYMPHOCYTES % (AUTO) 9.2 % (21-51); MEAN CORPUSCULAR HEMOGLOBIN 29.2 PG (27.0-31.0); MEAN CORPUSCULAR HGB CONC 32.8 g/dL (33.0-36.5); MEAN CORPUSCULAR VOLUME 89.1 FL (78-98); MEAN PLATELET VOLUME 9.2 FL (7.4-10.4); MONOCYTES % (AUTO) 6.1 % (2-12); NEUTROPHILS # (AUTO) 14.1 X10'3 (1.8-7.7); NEUTROPHILS % (AUTO) 83.5 % (42-75); PLATELET COUNT 311 X10'3 (140-440); RED BLOOD COUNT 3.75 X10'6 (4.20-5.60); RED CELL DISTRIBUTION WIDTH 14.5 % (11.5-14.5); WHITE BLOOD COUNT 16.9 X10'3 (4.5-11.0)
[2021-01-20 07:17] LABS: ALBUMIN 2.6 G/DL (3.4-5.0); ANION GAP 9 (8-16); BLOOD UREA NITROGEN 69 MG/DL (7-18); BUN/CREATININE RATIO 34.7 (6.6-38.0); CALCIUM 8.6 MG/DL (8.5-10.1); CHLORIDE 107 MMOL/L (99-107); CREATININE 1.99 MG/DL (0.40-0.90); GLUCOSE 83 MG/DL (70-104); MAGNESIUM 2.6 MG/DL (1.5-2.4); PHOSPHORUS 3.7 MG/DL (2.3-4.5); POTASSIUM 4.3 MMOL/L (3.5-5.1); SODIUM 146 MMOL/L (135-145); TOTAL CARBON DIOXIDE 29.6 MMOL/L (24-32); eGFR 24 ML/MIN
[2021-01-20] MEDS: K, MAG and/or Phos replacement - Verify level? MC SCH (08:00)
[2021-01-20] MEDS: dexamethasone 4mg/ml inj IV SCH (08:09)
[2021-01-20] MEDS: piperacillin/tazo 3.375gm/50ml 50 ML IV SCH (08:09)
[2021-01-20] MEDS: cyanocobalamin 500mcg tablet PO SCH (08:12)
[2021-01-20] MEDS: lactobacillus rhamnosus 10,000 MMU CELLS/CAPSULE PO SCH (08:12)
[2021-01-20] MEDS: amiodarone 200mg tablet PO SCH (08:12)
[2021-01-20] MEDS: atorvastatin 10mg tablet PO SCH (08:12)
[2021-01-20] MEDS: famotidine 20mg tablet PO SCH (08:12)
[2021-01-20] MEDS: ferrous sulfate 325mg tablet PO SCH (08:13)
[2021-01-20] MEDS: QUEtiapine 25mg tablet PO SCH (08:13)
[2021-01-20] MEDS: aspirin 81mg tab.chew PO SCH (08:13)
[2021-01-20 08:14] VITALS: BP_SYST 174
[2021-01-20] MEDS: metoprolol tartrate 50mg tablet PO SCH (08:14)
[2021-01-20] MEDS: multivitamins, therapeutics tablet PO SCH (08:14)
[2021-01-20] MEDS: cloNIDine 0.1 mg tablet PO SCH (08:14)
[2021-01-20] MEDS: docusate sodium 100mg/10ml UD cup PO SCH (08:14)
[2021-01-20] MEDS: lactose-reduced food (Ensure Enlive) - 237ml bottle PO SCH ×2 (08:57→13:00)
[2021-01-20] MEDS: nystatin 15 GM powder TP SCH ×2 (08:57→13:00)
--- NOTE | 2021-01-20 09:11 | NUR ---
Problems reprioritized. Patient report given, questions answered & plan of care reviewed with Darvin HERNANDES.
[2021-01-20 11:15] LABS: CLARITY,URINE CLOUDY (Clear); COLOR,URINE YELLOW (Yellow); GLUCOSE, URINE NEGATIVE (Neg); KETONES,URINE NEGATIVE (Neg); LEUKOCYTE ESTERASE ,URINE MODERATE (Neg); NITRITES, URINE NEGATIVE (Neg); OCCULT BLOOD,URINE LARGE (Neg); PROTEIN,URINE 100 mg/dl (Neg)
[2021-01-20 11:25] LABS: UA COLLECTION TYPE FOLEY CATH
[2021-01-20 11:27] LABS: RBC,URINE TNTC /HPF (0-2); SQUAMOUS EPITHELIAL CELL,UR FEW /LPF (FEW); WBC CLUMPS,URINE MANY /HPF (NEGATIVE)
[2021-01-20 11:28] LABS: BACTERIA,URINE 1+ /HPF (Neg)
[2021-01-20 11:47] LABS: TOTAL PROTEIN,URINE RANDOM 76.5 MG/DL
[2021-01-20 12:15] LABS: UA EOSINOPHILS NO EOS /HPF
--- NOTE | 2021-01-20 17:58 | NUR ---
Called [facility] and gave report to Jacinta HERNANDES. Awaiting transportation.
--- NOTE | 2021-01-20 18:10 | NUR ---
Patient in room PCU 3012. I have received report from GRETA [place] and had the opportunity to ask questions and assume patient care.
--- NOTE | 2021-01-20 18:25 | NUR ---
Problems reprioritized. Patient report given, questions answered & plan of care reviewed with George HERNANDES.
--- NOTE | 2021-01-20 18:47 | NUR ---
Pt transferred to [facility] via [facility] on 3 l NC vitals stable, report called. Pt had transfer papers and belongings
[2021-01-21] MEDS ORDERED: ALB0.5UD IH (06:02)
[2021-01-21] MEDS ORDERED: DOCU-148 PO (06:02)
[2021-01-21] MEDS ORDERED: ATR0.5NEB NEB (06:02)
[2021-01-21] MEDS ORDERED: CLON0.1T2 PO (06:02)
[2021-01-21] MEDS ORDERED: DEXA10VI6 IV (06:02)
[2021-01-21] MEDS ORDERED: AMIO200T61 PO (06:02)
[2021-01-21] MEDS ORDERED: FAMO20TA8 PO (06:02)
[2021-01-21] MEDS ORDERED: METO-467 PO (06:41)
[2021-01-21] MEDS ORDERED: PRED5TAB PO (06:42)
== END 2021-01-20 18:30 | DRG 207 ==
LOC: ER 05:02 → ED HOLD 06:38 → UNDOADMIN 06:38 → CICU 2S 12:49 → ED HOLD 12:49 → PCU 3S 01-15 16:11
PROVIDERS: ADMIT Student in an Organized Health Care Education/Training Program; ATTEND Student in an Organized Health Care Education/Training Program
PROC: 5A1955Z Respiratory Ventilation, Greater than 96 Consecutive Hours (ICD-10-PCS; principal; 2021-01-07)
PROC: 0BH17EZ Insertion of Endotracheal Airway into Trachea, Via Natural or Artificial Opening (ICD-10-PCS; 2021-01-07)
PROC: 0D9670Z Drainage of Stomach with Drainage Device, Via Natural or Artificial Opening (ICD-10-PCS; 2021-01-07)
PROC: 02HV33Z Insertion of Infusion Device into Superior Vena Cava, Percutaneous Approach (ICD-10-PCS; 2021-01-07)
PROC: B548ZZA Ultrasonography of Superior Vena Cava, Guidance (ICD-10-PCS; 2021-01-07)
PROC: 5A09357 Assistance with Respiratory Ventilation, Less than 24 Consecutive Hours, Continuous Positive Airway Pressure (ICD-10-PCS; 2021-01-14)
PROC: 05HY33Z Insertion of Infusion Device into Upper Vein, Percutaneous Approach (ICD-10-PCS; 2021-01-14)
PROC: B54MZZA Ultrasonography of Right Upper Extremity Veins, Guidance (ICD-10-PCS; 2021-01-14)
PROC: 5A09357 Assistance with Respiratory Ventilation, Less than 24 Consecutive Hours, Continuous Positive Airway Pressure (ICD-10-PCS; 2021-01-15)
PROC: 5A09357 Assistance with Respiratory Ventilation, Less than 24 Consecutive Hours, Continuous Positive Airway Pressure (ICD-10-PCS; 2021-01-16)
PROC: 5A09357 Assistance with Respiratory Ventilation, Less than 24 Consecutive Hours, Continuous Positive Airway Pressure (ICD-10-PCS; 2021-01-19)
DX: J96.21 Acute and chronic respiratory failure with hypoxia (principal); J18.9 Pneumonia, unspecified organism; I50.33 Acute on chronic diastolic (congestive) heart failure; N17.0 Acute kidney failure with tubular necrosis; E87.2 Acidosis; I13.0 Hypertensive heart and chronic kidney disease with heart failure and stage 1 through stage 4 chronic kidney disease, or unspecified chronic kidney disease; J44.0 Chronic obstructive pulmonary disease with (acute) lower respiratory infection; J98.11 Atelectasis; I16.1 Hypertensive emergency; Z68.41 Body mass index [BMI] 40.0-44.9, adult; E87.0 Hyperosmolality and hypernatremia; J96.22 Acute and chronic respiratory failure with hypercapnia; E11.22 Type 2 diabetes mellitus with diabetic chronic kidney disease; E78.00 Pure hypercholesterolemia, unspecified; E78.5 Hyperlipidemia, unspecified; I25.10 Atherosclerotic heart disease of native coronary artery without angina pectoris; I48.0 Paroxysmal atrial fibrillation; K57.30 Diverticulosis of large intestine without perforation or abscess without bleeding; N18.30 Chronic kidney disease, stage 3 unspecified; R31.0 Gross hematuria; I08.3 Combined rheumatic disorders of mitral, aortic and tricuspid valves; D64.9 Anemia, unspecified; T38.0X5A Adverse effect of glucocorticoids and synthetic analogues, initial encounter; E66.9 Obesity, unspecified; Z20.822 Contact with and (suspected) exposure to COVID-19; M19.90 Unspecified osteoarthritis, unspecified site; K21.9 Gastro-esophageal reflux disease without esophagitis; Z66 Do not resuscitate; I95.9 Hypotension, unspecified; Z79.899 Other long term (current) drug therapy; Z87.11 Personal history of peptic ulcer disease; Z87.891 Personal history of nicotine dependence; Z90.49 Acquired absence of other specified parts of digestive tract; Z90.710 Acquired absence of both cervix and uterus; Z95.5 Presence of coronary angioplasty implant and graft; Z88.0 Allergy status to penicillin; Z79.82 Long term (current) use of aspirin; Y92.89 Other specified places as the place of occurrence of the external cause
CPT/HCPCS: 31500; 36415; 36556; 36573; 36600; 70450; 71045; 71250; 74176; 76937; 80048; 80053; 80202; 81001; 82570; 82803; 82810; 82948; 83605; 83735; 83880; 84100; 84134; 84145; 84156; 84300; 84484; 85018; 85025; 85610; 85730; 87040; 87070; 87081; 87088; 87207; 87635; 92508; 92616; 93005; 93306; 94002; 94003; 94640; 94660; 94760; 94799; 96365; 96368; 96375; 97110; 97112; 97161; 97530; 97535; 99291; G0378; J0171; J0360; J1100; J1160; J1644; J1940; J2060; J2543; J3010; J3370; J3480; J3490; J7030; J7120

== ENCOUNTER 2021-03-19 09:46 | Inpatient (IN) | payer MEDICARE ==
[~2021-03-19] VITALS: Ht 162.6 cm; Wt 76.0 kg
[~2021-03-19 09:46] MED LIST changes: +ALB0.5UD IH; +AMIO200T61 PO; +ATR0.5NEB NEB; +CLON0.1T2 PO; +DEXA10VI6 IV; +DOCU-148 PO; +FAMO20TA8 PO; +PRED5TAB PO
[2021-03-19] MEDS ORDERED: methylPREDNISolone sod succ 125mg/2ml vial IV ONE (10:20)
[2021-03-19 11:46] LABS: BASOPHILS # (AUTO) 0.1 X10'3 (0-0.2); BASOPHILS % (AUTO) 0.7 % (0-1); EOSINOPHILS % (AUTO) 0.2 % (0-6); HEMATOCRIT 31.4 % (35.0-45.0); HEMOGLOBIN 10.7 g/dl (12.0-16.0); LYMPHOCYTES # (AUTO) 0.5 X10'3 (1.1-4.8); MEAN CORPUSCULAR HEMOGLOBIN 30.7 PG (27.0-31.0); MEAN CORPUSCULAR HGB CONC 33.9 g/dL (33.0-36.5); MEAN CORPUSCULAR VOLUME 90.6 FL (78-98); MEAN PLATELET VOLUME 8.4 FL (7.4-10.4); MONOCYTES # (AUTO) 0.4 X10'3 (0-0.9); MONOCYTES % (AUTO) 2.7 % (2-12); NEUTROPHILS # (AUTO) 15.2 X10'3 (1.8-7.7); NEUTROPHILS % (AUTO) 93.4 % (42-75); PLATELET COUNT 393 X10'3 (140-440); RED BLOOD COUNT 3.47 X10'6 (4.20-5.60); RED CELL DISTRIBUTION WIDTH 16.4 % (11.5-14.5); WHITE BLOOD COUNT 16.3 X10'3 (4.5-11.0)
[2021-03-19 11:51] LABS: D-DIMER 4.28 MG/L FEU (0-0.50)
[2021-03-19 11:53] LABS: ALANINE AMINOTRANSFERASE 24 U/L (12-78); ALBUMIN 2.5 G/DL (3.4-5.0); ALBUMIN/GLOBULIN RATIO 0.6 (1.1-1.5); ALKALINE PHOSPHATASE 81 IU/L (46-116); ANION GAP 8 (8-16); ASPARTATE AMINO TRANSFERASE 28 U/L (10-37); BILIRUBIN,TOTAL 0.4 MG/DL (0.1-1.0); BLOOD UREA NITROGEN 28 MG/DL (7-18); BUN/CREATININE RATIO 20.4 (6.6-38.0); CHLORIDE 107 MMOL/L (99-107); CREATININE 1.37 MG/DL (0.40-0.90); GLUCOSE 137 MG/DL (70-104); POTASSIUM 4.2 MMOL/L (3.5-5.1); SODIUM 146 MMOL/L (135-145); TOTAL CARBON DIOXIDE 31.5 MMOL/L (24-32); TOTAL PROTEIN 6.8 G/DL (6.4-8.2); eGFR 37 ML/MIN
[2021-03-19] MEDS ORDERED: magnesium 4gm in 100ml NS 100 ML IV PRN (13:05)
[2021-03-19] MEDS ORDERED: magnesium Cl slow-release 64mg tablet PO PRN (13:05)
[2021-03-19] MEDS ORDERED: potassium Cl 20 mEq SR tablet PO PRN ×2 (13:05)
[2021-03-19] MEDS ORDERED: potassium Cl 40MEQ/1/2NS 520ml 520 ML IV PRN ×2 (13:05)
[2021-03-19] MEDS ORDERED: magnesium 2GM in 50ml NS 50 ML IV PRN (13:05)
[2021-03-19] MEDS ORDERED: ondansetron/PF 4mg/2ml inj IV PRN (13:05)
[2021-03-19] MEDS ORDERED: acetaminophen 325mg tablet PO PRN (13:05)
[2021-03-19] MEDS ORDERED: normal saline 1000ml 1,000 ML IV SCH (13:05)
[2021-03-19] MEDS ORDERED: VALS160T30 PO (13:51)
[2021-03-19] MEDS ORDERED: PRED10TA PO (13:51)
[2021-03-19] MEDS ORDERED: METO-395 PO (13:51)
[2021-03-19] MEDS ORDERED: ATOR40TA72 PO (13:51)
[2021-03-19] MEDS ORDERED: ISOS30TA84 PO (13:51)
[2021-03-19] MEDS ORDERED: HYDR-4069 PO (13:51)
[2021-03-19] MEDS: enoxaparin 40mg/0.4ml syringe SUBCUT SCH (13:55)
[2021-03-19] MEDS ORDERED: DOCU100C40 PO (17:28)
[2021-03-19] MEDS ORDERED: ATR0.5NEB NEB (17:28)
[2021-03-19 20:30] VITALS: BP 170/77
[2021-03-19 22:00] VITALS: BP 178/78
[2021-03-19] MEDS: hydrALAZINE 25 MG tablet PO SCH (22:18)
[2021-03-20 02:00] VITALS: BP 172/109
[2021-03-20] MEDS: hydrALAZINE 25 MG tablet PO SCH ×4 (05:28→20:47)
[2021-03-20 06:00] VITALS: BP 163/62
--- NOTE | 2021-03-20 06:35 | NUR ---
ASSUMED CARE WITH VERBAL REPORT FROM RUSSEL IN ED, PATIENT ARRIVED VIA GURNEY AND TRANSFERRED TO ORTHO BED. PATIENT ON 6L N/C AND GIVEN NON-REBREATHER FOR BACK UP NEEDED . CALL LIGHT GIVEN TO PATIENT AND ENC'D HER TO USE IT.
--- NOTE | 2021-03-20 06:44 | NUR ---
WICK PLACED D/T INCONTIENCE AND 02 SATS DROPPING INTO THE MID TO HIGH 70'S. EXPLAINED TO PATIENT AND SHE AGREED TO USING THE WICK. REPORT TO EARLY SHIFT RN
--- NOTE | 2021-03-20 06:49 | NUR ---
Patient in room ORTHO 4008. I have received report from GRETA ARCEO and had the opportunity to ask questions and assume patient care.
[2021-03-20] MEDS: enoxaparin 40mg/0.4ml syringe SUBCUT SCH (07:35)
[2021-03-20] MEDS: K and/or MAG REPLACEMENT MC SCH ×3 (08:00→20:00)
[2021-03-20 08:37] LABS: BASOPHILS % (AUTO) 0.2 % (0-1); EOSINOPHILS % (AUTO) 0 % (0-6); HEMATOCRIT 33.9 % (35.0-45.0); HEMOGLOBIN 11.1 g/dl (12.0-16.0); LYMPHOCYTES # (AUTO) 0.5 X10'3 (1.1-4.8); LYMPHOCYTES % (AUTO) 2.8 % (21-51); MEAN CORPUSCULAR HEMOGLOBIN 29.8 PG (27.0-31.0); MEAN CORPUSCULAR HGB CONC 32.7 g/dL (33.0-36.5); MEAN CORPUSCULAR VOLUME 91.2 FL (78-98); MEAN PLATELET VOLUME 8.8 FL (7.4-10.4); MONOCYTES # (AUTO) 0.7 X10'3 (0-0.9); NEUTROPHILS # (AUTO) 15.4 X10'3 (1.8-7.7); PLATELET COUNT 421 X10'3 (140-440); RED BLOOD COUNT 3.72 X10'6 (4.20-5.60); RED CELL DISTRIBUTION WIDTH 16.7 % (11.5-14.5); WHITE BLOOD COUNT 16.5 X10'3 (4.5-11.0)
[2021-03-20 09:13] LABS: ALBUMIN 2.5 G/DL (3.4-5.0); ANION GAP 9 (8-16); BLOOD UREA NITROGEN 31 MG/DL (7-18); BUN/CREATININE RATIO 21.1 (6.6-38.0); CALCIUM 9.3 MG/DL (8.5-10.1); CHLORIDE 108 MMOL/L (99-107); CREATININE 1.47 MG/DL (0.40-0.90); GLUCOSE 121 MG/DL (70-104); MAGNESIUM 2.4 MG/DL (1.5-2.4); POTASSIUM 4.5 MMOL/L (3.5-5.1); SODIUM 146 MMOL/L (135-145); eGFR 34 ML/MIN
[2021-03-20 10:00] VITALS: BP 150/54
[2021-03-20] MEDS ORDERED: ipratropium 0.5 MG/2.5ML nebule NEB SCH (14:00)
[2021-03-20] MEDS: metoprolol succinate 25mg (24-HOUR) SR. Tablet PO SCH (14:30)
[2021-03-20] MEDS: cyanocobalamin 500mcg tablet PO SCH (14:30)
[2021-03-20] MEDS: ferrous sulfate 325mg tablet PO SCH (14:31)
[2021-03-20] MEDS: amiodarone 200mg tablet PO SCH (14:31)
[2021-03-20] MEDS: aspirin 81mg tab.chew PO SCH (14:31)
[2021-03-20] MEDS: isosorbide mononitrate 30mg tab.SR.24H PO SCH (14:31)
[2021-03-20] MEDS: DEXAMETHASONE 6 MG TABLET PO SCH (15:07)
[2021-03-20 15:19] VITALS: BP 147/55
[2021-03-20 18:00] VITALS: BP 136/57
--- NOTE | 2021-03-20 18:00 | NUR ---
also wearing 6 liters high flow Addendum: 03/20/21 at 2037 by Nicole Swanson RN Amended: Links added.
[2021-03-20] MEDS: lactose-reduced food (Ensure Enlive) - 237ml bottle PO SCH (18:17)
--- NOTE | 2021-03-20 18:30 | NUR ---
Problems reprioritized. Patient report given, questions answered & plan of care reviewed with GRETA OLIVARES.
[2021-03-20] MEDS: docusate sod 100mg capsule PO SCH (20:45)
[2021-03-20] MEDS: famotidine 20mg tablet PO SCH (20:45)
[2021-03-20 22:00] VITALS: BP 162/56
--- NOTE | 2021-03-20 22:00 | NUR ---
also wearing a 15liters nrb mask Addendum: 03/21/21 at 0112 by Nicole Swanson RN Amended: Links added.
[2021-03-21 02:00] VITALS: BP 164/63
--- NOTE | 2021-03-21 06:05 | NUR ---
received report from lana rivera
--- NOTE | 2021-03-21 06:30 | NUR ---
pt rolling around in bed, taking her mask and nasal cannula off, nursing staff in room assisting w/placing 02 back onto pt face, continue to monitor and remind pt to keep her 02 on her face
[2021-03-21] MEDS: DEXAMETHASONE 6 MG TABLET PO SCH (07:10)
[2021-03-21] MEDS: amiodarone 200mg tablet PO SCH (07:11)
[2021-03-21] MEDS: hydrALAZINE 25 MG tablet PO SCH (07:11)
[2021-03-21] MEDS: aspirin 81mg tab.chew PO SCH (07:11)
[2021-03-21] MEDS: ferrous sulfate 325mg tablet PO SCH (07:13)
[2021-03-21] MEDS: isosorbide mononitrate 30mg tab.SR.24H PO SCH (07:13)
[2021-03-21] MEDS: famotidine 20mg tablet PO SCH (07:13)
[2021-03-21] MEDS: metoprolol succinate 25mg (24-HOUR) SR. Tablet PO SCH (07:14)
[2021-03-21] MEDS: cyanocobalamin 500mcg tablet PO SCH (07:14)
[2021-03-21] MEDS: enoxaparin 40mg/0.4ml syringe SUBCUT SCH (07:17)
[2021-03-21 08:00] VITALS: BP 171/69
[2021-03-21] MEDS ORDERED: multivitamins, therapeutics tablet PO SCH (08:00)
[2021-03-21] MEDS ORDERED: losartan 50mg tablet PO SCH (08:00)
[2021-03-21] MEDS ORDERED: atorvastatin 20mg tablet PO SCH (08:00)
[2021-03-21] MEDS: K and/or MAG REPLACEMENT MC SCH (08:00)
--- NOTE | 2021-03-21 08:00 | NUR ---
pt is rolling around in bed pulling her mask and nasal cannula off, nursing staff is constantly in room assisting pt with 02, once 02 on pt, pt seems to be calm but then a few min later she pulls off her 02
[2021-03-21] MEDS: lactose-reduced food (Ensure Enlive) - 237ml bottle PO SCH (08:48)
[2021-03-21] MEDS: docusate sod 100mg capsule PO SCH (08:48)
[2021-03-21 09:08] LABS: ALBUMIN 2.3 G/DL (3.4-5.0); ANION GAP 11 (8-16); BLOOD UREA NITROGEN 44 MG/DL (7-18); BUN/CREATININE RATIO 28.8 (6.6-38.0); CALCIUM 9.3 MG/DL (8.5-10.1); CHLORIDE 107 MMOL/L (99-107); CREATININE 1.53 MG/DL (0.40-0.90); GLUCOSE 149 MG/DL (70-104); MAGNESIUM 2.4 MG/DL (1.5-2.4); POTASSIUM 5.2 MMOL/L (3.5-5.1); SODIUM 146 MMOL/L (135-145); TOTAL CARBON DIOXIDE 28.3 MMOL/L (24-32); eGFR 32 ML/MIN
[2021-03-21 09:09] LABS: BASOPHILS % (AUTO) 0 % (0-1); EOSINOPHILS % (AUTO) 0 % (0-6); HEMATOCRIT 33.9 % (35.0-45.0); HEMOGLOBIN 10.9 g/dl (12.0-16.0); LYMPHOCYTES # (AUTO) 0.4 X10'3 (1.1-4.8); LYMPHOCYTES % (AUTO) 1.4 % (21-51); MEAN CORPUSCULAR HEMOGLOBIN 29.8 PG (27.0-31.0); MEAN CORPUSCULAR HGB CONC 32.1 g/dL (33.0-36.5); MEAN CORPUSCULAR VOLUME 92.8 FL (78-98); MONOCYTES # (AUTO) 0.8 X10'3 (0-0.9); MONOCYTES % (AUTO) 3.4 % (2-12); NEUTROPHILS # (AUTO) 23.4 X10'3 (1.8-7.7); NEUTROPHILS % (AUTO) 95.2 % (42-75); PLATELET COUNT 442 X10'3 (140-440); RED BLOOD COUNT 3.65 X10'6 (4.20-5.60); RED CELL DISTRIBUTION WIDTH 16.9 % (11.5-14.5); WHITE BLOOD COUNT 24.6 X10'3 (4.5-11.0)
--- NOTE | 2021-03-21 10:00 | NUR ---
pt constantly rolling in bed and taking 02 off, notified hospitalist of possible sitter, no new orders at this time, continue to assist pt with 02 placement
--- NOTE | 2021-03-21 11:30 | NUR ---
pt got up out of bed in [facility] nursing station and sat on a chair, pt took off nasal cannula and took off nrb mask, after being told about every 30min to keep her cannula and mask on, with the help of a second nurse i placed pt 02 back on her face and placed her back in bed, pt took a few deep breaths and stopped breathing, I called a rapid response I notified nursing sup another nurse sent a page to hospitalist
--- NOTE | 2021-03-21 11:42 | NUR ---
hospitalist said to pronounce body I called [facility], the body has been released with reference # [id number] left a message for POA to call me back
--- NOTE | 2021-03-21 12:12 | NUR ---
hubert called back and i notified him of pt passing
--- NOTE | 2021-03-21 12:54 | NUR ---
Called [facility], it appears they are closed on the weekends Addendum: 03/21/21 at 1302 by Jannet Carrington RN I spoke to Melo Morales, he said [facility] in [place] would work, if not then the [place] location, I left a message with the [place] location.
[2021-03-21] MEDS ORDERED: ondansetron 4mg rapidly disintigrating tab PO PRN (14:30)
[2021-03-21] MEDS ORDERED: ondansetron/PF 4mg/2ml inj IV PRN (14:30)
--- NOTE | 2021-03-21 18:42 | NUR ---
waiting for sharon in [place] to peanut picker body gave report to lana dong
--- NOTE | 2021-03-21 19:30 | NUR ---
Bowen and Alanna picked up pt. told that pt has a ring on her which won't come off.
== END 2021-03-21 12:15 | DRG 177 ==
LOC: ER 09:47 → ED HOLD 16:42 → UNDOADMIN 16:42 → ORTHO 4S 16:44 → ED HOLD 20:10 → ORTHO 4S 20:10
PROVIDERS: ADMIT Internal Medicine; ATTEND Internal Medicine
PROC: 5A0935A Assistance with Respiratory Ventilation, Less than 24 Consecutive Hours, High Flow/Velocity Cannula (ICD-10-PCS; principal; 2021-03-20)
DX: U07.1 COVID-19 (principal); J12.82 Pneumonia due to coronavirus disease 2019; J96.21 Acute and chronic respiratory failure with hypoxia; I48.20 Chronic atrial fibrillation, unspecified; N17.9 Acute kidney failure, unspecified; E78.00 Pure hypercholesterolemia, unspecified; Z66 Do not resuscitate; E78.5 Hyperlipidemia, unspecified; K21.9 Gastro-esophageal reflux disease without esophagitis; M19.90 Unspecified osteoarthritis, unspecified site; I10 Essential (primary) hypertension; I25.10 Atherosclerotic heart disease of native coronary artery without angina pectoris; Z87.11 Personal history of peptic ulcer disease; Z90.49 Acquired absence of other specified parts of digestive tract; Z90.710 Acquired absence of both cervix and uterus; Z88.0 Allergy status to penicillin
CPT/HCPCS: 36415; 71045; 80048; 80053; 83605; 83735; 84145; 84484; 85025; 85379; 87040; 87081; 87635; 93005; 94760; 96361; 96372; 96374; 99285; C9803; G0378; J1650; J2930; J7030; J8540